=== PATIENT | male | born 1940 | race Caucasian/White ===

== ENCOUNTER 2017-12-23 12:44 | Inpatient (IN) | payer MEDICARE ==
--- NOTE | 2017-12-23 13:17 | ED Physician Chart ---
ED Chief Complaint/HPI - Patient Information Date Seen:: 12/23/17 Time Seen:: 12:50 Chief Complaint:: Agitation History of Present Illness:: onset x 3 days PHYSIATRIST of agitation, hallucinations, and striking out on other people; no report of trauma, LOC, ALOC, AMS, H/As, neck pain, C/P, SOB, Abd. Pain, A/N/V/D/C, fever, chills, SIs, or urinary s/s Allergies:: Allergies Allergy/AdvReac Type Severity Reaction Status Date / Time No Known Allergies Allergy Verified 12/23/17 12:56 Vitals:: Vital Signs - 8 hr 12/23/17 12:56 Temp 98.4 F HR 87 RR 21 BP 131/77 O2 Sat % 92 Historian:: Patient, EMS Review:: Nurse's Note Reviewed, Old Chart Reviewed, EMS run form Reviewed ED Review of Systems - Review of Systems General/Constitutional: No fever, No chills, No weight loss, No weakness, No diaphoresis, No edema, No loss of appetite Skin: No skin lesions, No rash, No bruising Head: No headache, No light-headedness Eyes: No loss of vision, No pain, No diplopia ENT: No earache, No nasal drainage, No sore throat, No tinnitus Neck: No neck pain, No swelling, No thyromegaly, No stiffness, No mass noted Cardio Vascular: No chest pain, No palpitations, No PND, No orthopnea, No edema Pulmonary: No SOB, No cough, No sputum, No wheezing GI: No nausea, No vomiting, No diarrhea, No pain, No melena, No hematochezia, No constipation, No hematemesis G/U: No dysuria, No frequency, No hematuria, No nacturia Musculoskeletal: No bone or joint pain, No back pain, No muscle pain Endocrine: No polyuria, No polydipsia Psychiatric: Prior psych history, No depression, No anxiety, No suicidal ideation, No homicidal ideation, Auditory hallucination, No visual hallucination Hematopoietic: No bruising, No lymphadenopathy Allergic/Immuno: No urticaria, No angioedema Neurological: No syncope, No focal symptoms, No weakness, No paresthesia, No headache, No seizure, No dizziness, Confusion, No confusion, No vertigo ED Past Medical History - Past Medical History Obtainable: Yes Past Medical History: HTN, CAD, CHF, Asthma/COPD, CVA/TIA, Thyroid disorder, Dementia, Other (Pneumonia) Family History: HTN Social History: Non Smoker, No Alcohol, No Drug Use, Single, Care Facility Surgical History: None Psychiatricy History: Schizophrenia, Bipolar, Dementia Medication: Reviewed Family Medical History - Family Member Mother History Unknown: Yes ED Physical Exam - Physical Examination General/Constitutional: Awake, Well-developed, well-nourished, Alert, No distress, GCS 15, Non-toxic appearing, Ambulatory Head: Atraumatic Eyes: Lids, conjuctiva normal, PERRL, EOMI Skin: Nl inspection, No rash, No skin lesions, No ecchymosis, Well hydrated, No lymphadenopathy ENMT: External ears, nose nl, TM canals nl, Nasal exam nl, Lips, teeth, gums nl , Oropharynx nl, Tonsils nl Neck: Nontender, Full ROM w/o pain, No JVD, No nuchal rigidity, No bruit, No mass, No stridor Respiratory: Nl effort/Exclusion, Clear to Auscultation, No Wheeze/Rhonchi/Rales Cardio Vascular: No murmur, gallop, rubs, NL S1 S2, Carotid/Femoral/Distal pulses equal bilaterally Other Cardio Vascular comments:: Irregular Irregular Rhythm GI: No tenderness/rebounding/guarding, No organomegaly, No hernia, Normal BS's, Nondistended, No mass/bruits, No McBurney tenderness : No CVA tenderness Extremities: No tenderness or effusion, Full ROM, normal strength in all extremities, No edema, Normal digits & nails Neuro/Psych: Alert/oriented, DTR's symmetric, Normal sensory exam, Normal motor strength, Judgement/insight normal, Mood normal, Normal gait, No focal deficits Other Neuro/Psych comments:: + Psychomotor Agitation; Mood/Affect: Labile; + Hallucinations; no SIs; Disoriented and Confused Misc: Normal back, No paraspinal tenderness ED Labs/Radiology/EKG Results - Lab Results Comments:: Na+: 130; WBC: 16.9 - EKG Interpretations EKG Time:: 13:28 Rate & Rhythm: 95; Atrial Fibrillation Comments:: non-specific st-t changes ED Septic Shock - . Is Septic Shock (SBP<90, OR Lactate>4 mmol\L) present?: No - <6hrs of presentation: Vital Signs: Vital Signs - 8 hr 12/23/17 12:56 Temp 98.4 F HR 87 RR 21 BP 131/77 O2 Sat % 92 ED Reassessment (Disposition) - Reassessment Reassessment Condition:: Improved - Diagnosis Diagnosis:: Agitation; Bipolar Disorder; Atrial Fibrillation; Leukocytosis; Hyponatremia; PNA; Sepsis; Medical Clearance; Psychosis - Aftercare/Follow up Instructions Aftercare/Follow-Up Instructions:: Counseled pt regarding lab results/diagnosis & need follow up, Counseled pt & family regarding lab results/diagnosis & need follow up - Patient Disposition Discharge/Transfer:: Acute Care w/in this hosp Accepting Physician:: Dr. Cedeno Time Called:: 1400 Time Responded:: 14:00 Admitted to:: [facility] Spoke to:: Dr. Cedeno Admitting Medical Physician:: Dr. Cedeno Admitting Psych Physician:: Dr. Bean Condition at Disposition:: Stable, Improved ED Discharge Plan - Patient Disposition Instructions: Psychosis
[2017-12-23 13:26] LABS: % BASOPHILS 0.2 % (0.0-2.0); % EOSINOPHILS 1.5 % (0.0-5.0); % LYMPHOCYTES 7.6 % (20.0-50.0); % MONOCYTES 6.9 % (2.0-10.0); % NEUTROPHILS 83.8 % (40.0-80.0); EOSINOPHILE ABSOLUTE 0.3 Th/cmm (0.1-0.4); HEMATOCRIT 47.9 % (41.0-60); HEMOGLOBIN 15.8 gm/dL (12-16); LYMPHOCYTE ABSOLUTE 1.3 Th/cmm (1.5-3.0); MEAN CELL VOLUME 88.3 fl (80-99); MEAN CORPUSCULAR HEMOGLOBIN 29.1 pg (27.0-31.0); MEAN CORPUSCULAR HGB CONC 32.9 pg (28.0-36.0); MEAN PLATELET VOLUME 9.9 fl; MONOCYTE ABSOLUTE 1.2 Th/cmm (0.3-1.0); NEUTROPHILE ABSOLUTE 14.1 Th/cmm (1.8-8.0); PLATELET COUNT 334 Th/cmm (150-400); RED BLOOD COUNT 5.42 Mil/cmm (3.80-5.80); RED CELL DISTRIBUTION WIDTH 12.6 % (11.5-20.0)
[2017-12-23 13:28] LABS: WHITE BLOOD COUNT 16.9 Th/cmm (4.8-10.8)
[2017-12-23 13:39] LABS: ACETAMINOPHEN < 10.0 ug/mL (10.0-30.0); ALBUMIN 3.6 gm/dL (4.2-5.5); ALKALINE PHOSPHATASE 100 U/L (34-104); ANION GAP 9.9 (7.0-16.0); BILIRUBIN,TOTAL 1.4 mg/dL (0.3-1.0); BUN - UREA NITROGEN 34 mg/dL (7-25); CALCIUM SERUM 10.2 mg/dL (8.6-10.3); CARBON DIOXIDE 26.6 mEq/L (21.0-31.0); CHLORIDE 97 mEq/L (98-107); CHOLESTEROL 147 mg/dL (<200); GLUCOSE 126 mg/dL (70-105); HDL -HIGH DENSITY LIPOPROTEIN 40 mg/dL (23-92); POTASSIUM SERUM 3.5 mEq/L (3.5-5.1); SGOT 34 U/L (13-39); SGPT/ALT 55 U/L (7-52); SODIUM SERUM 130 mEq/L (136-145); TOTAL PROTEIN,SERUM 7.3 gm/dL (6.0-8.3); TRIGLYCERIDES 133 mg/dL (<150)
[2017-12-23 13:42] LABS: SALICYLATES (ASPIRIN) < 25.0 mg/L (30.0-100.0)
[2017-12-23 16:09] VITALS: BP 131/63
--- NOTE | 2017-12-23 16:23 | History and Physical ---
History of Present Illness - HPI Chief Complaint: agitation HPI: This is a 77 year old male who is a snf resident admitted to [facility] due to agitation towards nursing staff. Vital Signs: Last Vital Signs Temp 98.4 F 12/23/17 12:56 Pulse 89 12/23/17 15:22 Resp 18 12/23/17 15:22 BP 131/63 12/23/17 16:09 Pulse Ox 94 12/23/17 15:22 Past Medical History Other History: HTN, CAD, CHF, Asthma/COPD, CVA/TIA, Thyroid disorder, Dementia, Pneumonia) Family Medical History - Family Member Mother History Unknown: Yes Social History Smoke: No Alcohol: None Drugs: None Lives: Custodial - Medications Home Medications: Home Medication Medication Instructions Recorded Type Albuterol/Ipratropium Neb [Duoneb 3 ml HHN Q4HR 12/23/17 History Neb] Bisacodyl [Dulcolax 10 Mg Supp] 10 mg RC DAILY PRN 12/23/17 History Fleet Enema [Fleet Enema] 135 ml RC DAILY PRN 12/23/17 History Hydralazine HCl 50 mg GT Q8H 12/23/17 History Hydrochlorothiazide [Hctz*] 50 mg GT DAILY 12/23/17 History Levothyroxine Sodium 125 mcg GT DAILY 12/23/17 History Lisinopril 40 mg GT DAILY 12/23/17 History Magnesium Hydroxide [Milk of 30 ml GT DAILY PRN 12/23/17 History Magnesia] Fcxrgymjlgfz-Rvpc-Omyftbtt,Iso 3.375 gm IV Q6H 12/23/17 History [Zosyn 3.375 gm/50 ml Galaxy] QUEtiapine Fumarate [SEROquel] 25 mg GT Q8H PRN 12/23/17 History Sennosides A and B [Senna] 8.6 mg GT BID 12/23/17 History amLODIPine Besylate [Norvasc*] 10 mg GT DAILY 12/23/17 History - Allergies Allergies/Adverse Reactions: Allergies Allergy/AdvReac Type Severity Reaction Status Date / Time No Known Allergies Allergy Verified 12/23/17 12:56 Review of Systems - Review of Systems Constitutional: Report: No Significant Eyes: Report: No Significant Respiratory: Report: No Significant Cardiovascular: Report: No Significant Neurological: Report: No Significant Physical Exam - Physical Exam HEENT: Report: Ears Nose Throat within normal limits Neck: Report: Within normal limits Cardiovascular Systems: Report: +s1/s2 noted, Regular, Rate and Rhythm Respiratory: Report: Breath Sounds are within normal limits Abdomen: Report: Non-tender to palpation Back: Report: Inspection of back is within normal limits. Extremities: Report: Non-tender to palpation. Skin: Report: Color of skin is within normal limits - Assessment Assessment: Current Active Problems Problem Status Onset AGITATION WITH STRIKING OUT BEHAVIOR Acute HTN CAD CHF Asthma/COPD hypothyroid Dementia - Plan Plan: continue current orders
[2017-12-23] MEDS ORDERED: Magnesium Hydroxide (MOM) 30 mL UDC GT PRN (16:35)
[2017-12-23] MEDS ORDERED: Fleet Enema 135 mL RC PRN (16:35)
[2017-12-23] MEDS ORDERED: [UNRECOGNIZED DRUG - OTHER] IV SCH (16:45)
[2017-12-23] MEDS ORDERED: PIPERACILLIN TAZO DEXTROSE ISO IV SCH (16:45)
[2017-12-23 17:18] LABS: A1C % 5.9 % (4.0-6.0)
[2017-12-23] MEDS ORDERED: Maalox 30 mL Cup PO PRN (18:14)
[2017-12-23] MEDS ORDERED: Albuterol/Ipratropium Neb 3 ML AERS HHN SCH (19:00)
[2017-12-24] MEDS ORDERED: Levothyroxine 0.125 Mg Tab GT SCH (07:30)
--- NOTE | 2017-12-24 07:57 | Diagnostic Imaging Report ---
Exam: Chest portable HISTORY: Pneumonia. Findings: Portable examination of the chest at 1843 hours reviewed, no prior studies available comparison. Bony thorax intact. Mediastinal structures midline the heart is enlarged at is evidence of congestive heart failure. Left lobe infiltrate and effusion noted. The gastrostomy tube overlying mid abdomen. IMPRESSION: Left lower lobe pneumonia and effusion Cardiomegaly congestive heart failure. Follow-up examination recommended.
[2017-12-24] MEDS ORDERED: Multivitamin Tab PO SCH (09:00)
== END 2017-12-23 20:28 | DRG 885 ==
LOC: ER 12:44 → GERO 15:28
PROVIDERS: ADMIT Psychiatry & Neurology Psychiatry; ATTEND Psychiatry & Neurology Psychiatry
DX: F31.9 Bipolar disorder, unspecified (principal); A41.9 Sepsis, unspecified organism; J18.9 Pneumonia, unspecified organism; I11.0 Hypertensive heart disease with heart failure; I48.91 Unspecified atrial fibrillation; F03.91 Unspecified dementia, unspecified severity, with behavioral disturbance; I50.9 Heart failure, unspecified; E87.1 Hypo-osmolality and hyponatremia; J44.9 Chronic obstructive pulmonary disease, unspecified; I25.10 Atherosclerotic heart disease of native coronary artery without angina pectoris; F29 Unspecified psychosis not due to a substance or known physiological condition; Z79.51 Long term (current) use of inhaled steroids; Z86.73 Personal history of transient ischemic attack (TIA), and cerebral infarction without residual deficits; Z82.49 Family history of ischemic heart disease and other diseases of the circulatory system
CPT/HCPCS: 36415-UA; 71045-TC; 80053-TC; 80061-TC; 80320-TC; 80329-TC; 83036-90; 83605; 84443-TC; 85007-TC; 85025-TC; 85027-TC; 86592-TC; 93005; 94760; Z7610

== ENCOUNTER 2017-12-23 20:29 | Inpatient (IN) | payer MEDICARE ==
[2017-12-23 23:24] LABS: pH 7.57 (7.35-7.45)
[2017-12-23 23:25] LABS: ALLEN TEST Positive
[2017-12-23] MEDS ORDERED: Albuterol/Ipratropium Neb 3 ML AERS HHN PRN (23:40)
[2017-12-24] MEDS: Albuterol/Ipratropium Neb 3 ML AERS HHN SCH ×7 (00:39→22:45)
[2017-12-24] MEDS ORDERED: Piperacillin Sodium/Tazobact 3.375 gm Vial IV ONE (03:30)
[2017-12-24] MEDS ORDERED: Pneumococcal Vaccine 0.5 mL Vial IM ONE (04:23)
[2017-12-24 08:09] LABS: BASOPHILE ABSOLUTE 0.2 Th/cumm (0-0.2); HEMATOCRIT 44.7 % (41.0-60); HEMOGLOBIN 15.1 gm/dL (12-16); LYMPHOCYTE ABSOLUTE 1.4 Th/cmm (1.5-3.0); MANUAL DIFF REQUIRED? YES; MEAN CELL VOLUME 88.6 fl (80-99); MEAN CORPUSCULAR HEMOGLOBIN 29.9 pg (27.0-31.0); MEAN CORPUSCULAR HGB CONC 33.8 pg (28.0-36.0); MEAN PLATELET VOLUME 10.3 fl; MONOCYTE ABSOLUTE 1.3 Th/cmm (0.3-1.0); PLATELET COUNT 379 Th/cmm (150-400); RED BLOOD COUNT 5.04 Mil/cmm (3.80-5.80); RED CELL DISTRIBUTION WIDTH 12.9 % (11.5-20.0)
[2017-12-24 08:22] LABS: WHITE BLOOD COUNT 21.9 Th/cmm (4.8-10.8)
[2017-12-24 08:38] LABS: BAND NEUTROPHILE 5 % (0-10); EOSINOPHIL 1 % (0-5); LYMPHOCYTE 5 % (20-50); MONOCYTE 6 % (2-10); NEUTROPHILS 83 % (40-80); TOTAL CELLS COUNTED 100
--- NOTE | 2017-12-24 08:45 | Diagnostic Imaging Report ---
KUB single view HISTORY: Coffee ground residual COMPARISON: None FINDINGS: There appears to be a percutaneous feeding tube. Mild to moderate gas-filled loops of bowel are noted. Mild Distal fecal impaction is noted. The osseous structures are intact. IMPRESSION: Mild to moderate gas filled loops of bowel, nonspecific. There is mild distal fecal impaction. Percutaneous feeding tube noted.
--- NOTE | 2017-12-24 08:46 | Diagnostic Imaging Report ---
CHEST X-RAY: AP view INDICATION: pain COMPARISON: 12/23/2017 FINDINGS: Mild increased interstitial lung markings are noted. No focal consolidation or effusions. Cardiomegaly is noted atherosclerosis. Degenerative changes are noted. IMPRESSION: Mild increased interstitial lung markings nonspecific and probably chronic in etiology. No focal consolidation identified. Cardiomegaly and atherosclerotic vascular disease.
--- NOTE | 2017-12-24 12:01 | Diagnostic Imaging Report ---
CT abdomen and pelvis without intravenous contrast Indication: Coffee ground residual, pain. Vomiting and diarrhea Comparison: None, Technique: Axial images were obtained from the lung bases to the bilateral proximal femurs without IV contrast. Coronal reconstructions were made. total DLP: 582, CTDI11.2 FINDINGS: Hypoventilatory and atelectatic changes of the lung bases are noted. Assessment of solid organs is limited due to lack of IV contrast. Exam is also limited due to external material along the right flank region causing streak artifact. No evidence of focal hepatic lesions. No focal splenic lesions. Diffuse pancreatic gland atrophy is noted. No focal lesions. Nonspecific bilateral perinephric inflammatory changes are noted. 4 mm left renal stone versus vascular calcification is noted. A 6 mm stone is seen along the gallbladder neck with mild distention of the gallbladder. Borderline prominent prostate gland is seen. There is mild distal fecal impaction. Diverticulosis is noted without evidence of diverticulitis. No evidence of bowel obstruction. Fluid-filled appendix is noted without evidence of appendicitis. Percutaneous pigtail gastric feeding tube is noted. No evidence of free abdominal air or free abdominal fluid. Streak artifact possibly due to injury ingested material or postsurgical changes seen along the right mid abdomen Diffuse atherosclerotic vascular disease noted with areas of mild ectasia of the abdominal aorta. Degenerative changes of the spine and pelvis are noted. IMPRESSION: Pigtail percutaneous gastric feeding tube. No evidence of free fluid. No evidence of bowel obstruction. Diverticulosis without evidence of diverticulitis Mild to distal fecal impaction. 6 mm stone within the gallbladder neck with mild distention of the gallbladder. Recommend short-term follow-up ultrasound. Nonobstructive 4 mm left renal stone versus vascular calcification. Borderline prominent prostate gland. Streak artifact possibly ingested material postsurgical change seen along the right mid abdomen. Diffuse atherosclerosis.
--- NOTE | 2017-12-24 16:58 | Internal Medicine Prog Note ---
Internal Medicine Objective - Results Result Diagrams: 12/24/17 07:36 12/24/17 13:50 Recent Labs: Laboratory Last Values WBC 21.9 Th/cmm (4.8-10.8) H* 12/24/17 07:36 RBC 5.04 Mil/cmm (3.80-5.80) 12/24/17 07:36 Hgb 15.1 gm/dL (12-16) 12/24/17 07:36 Hct 44.7 % (41.0-60) 12/24/17 07:36 MCV 88.6 fl (80-99) 12/24/17 07:36 MCH 29.9 pg (27.0-31.0) 12/24/17 07:36 MCHC Differential 33.8 pg (28.0-36.0) 12/24/17 07:36 RDW 12.9 % (11.5-20.0) 12/24/17 07:36 Plt Count 379 Th/cmm (150-400) 12/24/17 07:36 MPV 10.3 fl 12/24/17 07:36 Band Neutrophils % 5 % (0-10) 12/24/17 07:36 Neutrophils (Manual) 83 % (40-80) H 12/24/17 07:36 Lymphocytes 5 % (20-50) L 12/24/17 07:36 Monocytes 6 % (2-10) 12/24/17 07:36 Eosinophils 1 % (0-5) 12/24/17 07:36 Specimen Source ARTERIAL 12/23/17 22:58 Sample Site Left Radial 12/23/17 22:58 pH 7.57 (7.35-7.45) H* 12/23/17 22:58 pCO2 35.0 mmHg (35.0-45.0) 12/23/17 22:58 pO2 47.0 mmHg (80.0-100.0) L* 12/23/17 22:58 HCO3 32.2 mEq/L (20.0-26.0) H 12/23/17 22:58 Base Excess 9.6 mEq/L (-3.0-3.0) H 12/23/17 22:58 O2 Saturation 89.0 % (92.0-100.0) L 12/23/17 22:58 Ciro Test Positive 12/23/17 22:58 Vent Rate N/A 12/23/17 22:58 Inspired O2 21 12/23/17 22:58 Tidal Volume N/A 12/23/17 22:58 PEEP N/A 12/23/17 22:58 Pressure (ins/psv/peep) N/A 12/23/17 22:58 Critical Value MMIRANDA,COMPUTER APPLICATIONS DEVELOPER 12/23/17 22:58 BUN 41 mg/dL (7-25) H 12/24/17 13:50 Creatinine 1.4 mg/dL (0.7-1.3) H 12/24/17 13:50 B-Natriuretic Peptide 146.0 pg/mL (5.0-100.0) H 12/24/17 07:36 - Physical Exam Vitals and I&O: Vital Signs Temp 99.2 F 12/24/17 13:41 Pulse 81 12/24/17 15:53 Resp 20 12/24/17 15:53 BP 120/63 12/24/17 13:41 Pulse Ox 96 12/24/17 15:53 Intake & Output 12/23/17 12/24/17 12/24/17 18:59 06:59 18:59 Intake Total 300 50 Output Total 1400 Balance -1100 50 Weight (lbs) 83.915 kg 83.915 kg Intake: Intake, IV Amount 300 50 Piperacillin Sodium/ 50 50 Tazobact 3.375 gm In Sodium Chloride 0.9% 50 ml @ 100 mls/hr IV Q8H [facility] Rx#:[id number] Vancomycin HCl 1 gm In 250 Sodium Chloride 0.9% 250 ml @ 165 mls/hr IV Q24H [facility] Rx#:[id number] Output: Gastric Drainage 1400 Other: # Voids 2 # Bowel Movements 0 Active Medications: Current Medications Albuterol/Ipratropium (Duoneb Neb) 3 ml HHN Q4HRT [facility] Stop: 02/21/18 23:44 Last Admin: 12/24/17 15:50 Dose: 3 ml Albuterol/Ipratropium (Duoneb Neb) 3 ml HHN Q2H PRN PRN Reason: Wheezing Stop: 02/21/18 23:39 Piperacillin Sod/Tazobactam (Sod 3.375 gm/ Sodium Chloride) 50 mls @ 100 mls/ hr IV Q8H [facility] Stop: 02/22/18 00:59 Last Infusion: 12/24/17 12:26 Dose: Infused Vancomycin HCl 1.5 gm/ Sodium (Chloride) 500 mls @ 250 mls/hr IV ONCE ONE Stop: 12/24/17 18:59 Vancomycin HCl 1.5 gm/ Sodium (Chloride) 500 mls @ 250 mls/hr IV Q24H [facility] Stop: 02/23/18 08:59 Miscellaneous (Vancomycin Iv Per Pharmacy) 1 ea [facility] DAILY [facility] Stop: 02/22/18 15:59 Pantoprazole Sodium (Protonix) 40 mg IVP DAILY [facility] Stop: 02/23/18 08:59
[2017-12-24] MEDS ORDERED: Vancomycin HCl 1.5 GM in Sodium Chloride 0.9% 500 ML IV ONE (17:00)
--- NOTE | 2017-12-24 17:38 | Consultation ---
DATE OF CONSULTATION: 12/24/2017 PATIENT OF: Dr. Cedeno. Thank you very much Dr. Cedeno for this consultation. HISTORY OF PRESENT ILLNESS: This is a 77-year-old male, who was in [facility]. Apparently has episodes of emesis, has shortness of breath, hypoxemia, transferred here for treatment and management. The patient has a G-tube, dysphagia, placed on oxygen, nebulizer treatment and the patient's G-tube was placed on low intermittent suction, appears to be doing better, still little bit congested. OTHER PAST MEDICAL HISTORY: History of COPD, CVA, dementia, hypertension, coronary artery disease. SOCIAL HISTORY: Smoking for 30 years. He said quit in 2011. PHYSICAL EXAMINATION: GENERAL: The patient is awake, some congestion, no acute distress. VITAL SIGNS: Temperature 97.9, pulse 90, respirations 20, blood pressure is 131/63, saturation 98. HEENT: Head atraumatic, normocephalic. Eyes: Pupils reactive to light and accommodation. Ears, nose and throat are normal. NECK: Supple. No JVD. CHEST: There is rhonchi bilaterally. HEART: Regular rate. ABDOMEN: Soft. EXTREMITIES: No edema. LABORATORY DATA: WBC 16.9, hemoglobin 15.8, hematocrit 29.1. Sodium 130, potassium 3.5, BUN 34, creatinine 1.0. Chest x-ray was clear. No acute congestion. The followup chest x-ray with suggestion of possible infiltrate in left lower lobe area. IMPRESSION: 1. This is a 77-year-old male with possible aspiration pneumonia. 2. Pneumonia. 3. Respiratory failure. 4. Weakness. 5. Dysphagia. 6. Emesis. 7. Chronic obstructive pulmonary disease with exacerbation. PLAN: 1. IV antibiotics. 2. Nebulizer treatment. 3. Add Solu-Medrol. 4. Follow up chest x-ray and labs. Continue supportive care. Thank you very much for this consultation. I will follow the patient with you. JOB# [id number] [email or web address]
[2017-12-24] MEDS ORDERED: Fleet Enema 135 mL RC PRN (19:49)
[2017-12-24] MEDS ORDERED: Magnesium Hydroxide (MOM) 30 mL UDC GT PRN (19:49)
[2017-12-24] MEDS ORDERED: [UNRECOGNIZED DRUG - OTHER] IV SCH (20:00)
[2017-12-24] MEDS ORDERED: PIPERACILLIN TAZO DEXTROSE ISO IV SCH (20:00)
[2017-12-24] MEDS: methylPREDNISolone SS 40 mg Vial IVP SCH (20:46)
--- NOTE | 2017-12-24 21:52 | Consultation ---
DATE OF CONSULTATION: 12/24/2017 INPATIENT GASTROINTESTINAL CONSULTATION REFERRING PHYSICIAN: Dr. Cedeno. REASON FOR CONSULTATION: Coffee-ground emesis seen in the G-tube. HISTORY OF PRESENT ILLNESS: A 77-year-old male from a skilled facility. The patient was admitted for agitation. The patient is otherwise a poor historian, unable to give any meaningful history. PAST MEDICAL HISTORY: Hypertension, coronary artery disease, CHF, asthma, COPD, stroke, TIA, thyroid disorder, dementia, and pneumonia. PAST SURGICAL HISTORY: PEG tube placement. FAMILY HISTORY: Noncontributory. SOCIAL HISTORY: Resident of skilled facility. ALLERGIES: None. CURRENT MEDICATIONS: Zosyn and vancomycin. REVIEW OF SYSTEMS: Ten-point review of systems was unobtainable. PHYSICAL EXAMINATION: VITAL SIGNS: Temperature 97.6, breathing 20, pulse of 85, blood pressure is 139/72, and satting 95%. GENERAL: In no apparent distress. EYES: Anicteric. Normal conjunctivae. HEENT: Normocephalic and atraumatic. Moist mucous membranes. NECK: Soft and supple. CHEST: Clear. Normal effort. CARDIOVASCULAR: Regular rate and rhythm. ABDOMEN: Soft, nontender, and nondistended. G-tube. SKIN: Warm and dry. EXTREMITIES: Revealed no cyanosis. LABORATORY DATA: Show white count 21.9, hemoglobin of 15.1, and platelets of 379. IMPRESSION: A 77-year-old male with coffee-ground emesis in the form of gastric residuals, that are dark according to the staff. Hemoglobin is normal at 15.1. No obvious nausea, vomiting. The patient also has no complaints of any abdominal pain. PLAN: 1. Follow H and H. 2. Provide the patient with Protonix. 3. Consider EGD. Thank you for allowing me to participate. Please call me if you have any questions. JOB# [id number]
[2017-12-25] MEDS: Albuterol/Ipratropium Neb 3 ML AERS HHN SCH ×6 (02:47→22:34)
[2017-12-25] MEDS: methylPREDNISolone SS 40 mg Vial IVP SCH ×3 (05:26→20:55)
[2017-12-25 06:42] VITALS: BP 145/76
--- NOTE | 2017-12-25 07:42 | Consultation ---
DATE OF CONSULTATION: 12/25/2017 PHYSICIAN: Dr. Cedeno. PLASTICS FABRICATOR AND ASSEMBLER: Dr. Bean. TYPE OF THE REPORT: Psychiatric consult. REASON FOR THE CONSULT: Agitation. HISTORY OF PRESENT ILLNESS: The patient is a 77-year-old male who was transferred from [facility] because of increased agitation and because of irritability. The patient has been agitated and has been aggressive. He also was not able to follow any of staff directions. The patient also has been having anxiety. Chart reviewed and the patient interviewed. The patient is a poor historian and he was not able to provide any information. He also seems to be restless at times. The patient also still has problem following directions and seems to be confused. PAST PSYCHIATRIC HISTORY: The patient has history of dementia. PAST MEDICAL HISTORY: The patient has chronic obstructive pulmonary disease, hypothyroidism, hypertension, and coronary artery disease. SOCIAL HISTORY: The patient lives in [facility]. No known alcohol or drug use. MENTAL STATUS EXAM: The patient appears his stated age. Confused, poor historian, and unable to answer any of my questions because of his hallucinations and his psychosis. Easily agitated. Confused and seems to be disoriented to time, place, person, and situation. ASSESSMENT: PRIMARY DIAGNOSIS: Unspecified psychosis. SECONDARY DIAGNOSIS: Alzheimer's dementia, moderate to severe, without psychotic features. TREATMENT PLAN: We will monitor the patient's behavior and condition closely. Also, we will give Seroquel in a dose of 12.5 mg twice a day. Also, continue to follow up closely with his behavior. If the patient continued to be agitated, the patient might be admitted to the Geropsych Unit. JOB# [id number]
[2017-12-25 08:51] LABS: ANION GAP 16.5 (7.0-16.0); BUN - UREA NITROGEN 59 mg/dL (7-25); CALCIUM SERUM 10.1 mg/dL (8.6-10.3); CHLORIDE 99 mEq/L (98-107); CREATININE - SERUM 1.7 mg/dL (0.7-1.3); GLUCOSE 174 mg/dL (70-105); POTASSIUM SERUM 3.5 mEq/L (3.5-5.1); SODIUM SERUM 139 mEq/L (136-145)
--- NOTE | 2017-12-25 08:56 | General Progress Note ---
Subjective - Review of Systems Events since last encounter: patient psychotic Objective - Results Result Diagrams: 12/24/17 07:36 12/25/17 07:02 Recent Labs: Laboratory Last Values WBC 21.9 Th/cmm (4.8-10.8) H* 12/24/17 07:36 RBC 5.04 Mil/cmm (3.80-5.80) 12/24/17 07:36 Hgb 15.1 gm/dL (12-16) 12/24/17 07:36 Hct 44.7 % (41.0-60) 12/24/17 07:36 MCV 88.6 fl (80-99) 12/24/17 07:36 MCH 29.9 pg (27.0-31.0) 12/24/17 07:36 MCHC Differential 33.8 pg (28.0-36.0) 12/24/17 07:36 RDW 12.9 % (11.5-20.0) 12/24/17 07:36 Plt Count 379 Th/cmm (150-400) 12/24/17 07:36 MPV 10.3 fl 12/24/17 07:36 Band Neutrophils % 5 % (0-10) 12/24/17 07:36 Neutrophils (Manual) 83 % (40-80) H 12/24/17 07:36 Lymphocytes 5 % (20-50) L 12/24/17 07:36 Monocytes 6 % (2-10) 12/24/17 07:36 Eosinophils 1 % (0-5) 12/24/17 07:36 Specimen Source ARTERIAL 12/23/17 22:58 Sample Site Left Radial 12/23/17 22:58 pH 7.57 (7.35-7.45) H* 12/23/17 22:58 pCO2 35.0 mmHg (35.0-45.0) 12/23/17 22:58 pO2 47.0 mmHg (80.0-100.0) L* 12/23/17 22:58 HCO3 32.2 mEq/L (20.0-26.0) H 12/23/17 22:58 Base Excess 9.6 mEq/L (-3.0-3.0) H 12/23/17 22:58 O2 Saturation 89.0 % (92.0-100.0) L 12/23/17 22:58 Ciro Test Positive 12/23/17 22:58 Vent Rate N/A 12/23/17 22:58 Inspired O2 21 12/23/17 22:58 Tidal Volume N/A 12/23/17 22:58 PEEP N/A 12/23/17 22:58 Pressure (ins/psv/peep) N/A 12/23/17 22:58 Critical Value MMIRANDA,W[employer] MATE 12/23/17 22:58 Sodium 139 mEq/L (136-145) 12/25/17 07:02 Potassium 3.5 mEq/L (3.5-5.1) 12/25/17 07:02 Chloride 99 mEq/L (98-107) 12/25/17 07:02 Carbon Dioxide 27.0 mEq/L (21.0-31.0) 12/25/17 07:02 Anion Gap 16.5 (7.0-16.0) H 12/25/17 07:02 BUN 59 mg/dL (7-25) H 12/25/17 07:02 Creatinine 1.7 mg/dL (0.7-1.3) H 12/25/17 07:02 Est GFR ( Amer) TNP 12/25/17 07:02 Est GFR (Non-Af Amer) TNP 12/25/17 07:02 BUN/Creatinine Ratio 34.7 12/25/17 07:02 Glucose 174 mg/dL (70-105) H 12/25/17 07:02 Calcium 10.1 mg/dL (8.6-10.3) 12/25/17 07:02 B-Natriuretic Peptide 146.0 pg/mL (5.0-100.0) H 12/24/17 07:36 - Physical Exam Vitals and I&O: Vital Signs Temp 97.1 F 12/25/17 06:00 Pulse 89 12/25/17 07:59 Resp 20 12/25/17 07:59 BP 145/76 12/25/17 06:42 Pulse Ox 97 12/25/17 07:59 Intake & Output 12/24/17 12/25/17 12/25/17 18:59 06:59 18:59 Intake Total 50 100 Output Total 500 Balance 50 -400 Weight (lbs) 80.649 kg Intake: Intake, IV Amount 50 100 Piperacillin Sodium/ 50 100 Tazobact 3.375 gm In Sodium Chloride 0.9% 50 ml @ 100 mls/hr IV Q8H [facility] Rx#:[id number] Output: Gastric Drainage 500 Other: # Voids 2 Active Medications: Current Medications Albuterol/Ipratropium (Duoneb Neb) 3 ml HHN Q2H PRN PRN Reason: Wheezing Stop: 02/21/18 23:39 Albuterol/Ipratropium (Duoneb Neb) 3 ml HHN Q4HRT [facility] Stop: 02/22/18 22:59 Last Admin: 12/25/17 07:58 Dose: 3 ml Amlodipine Besylate (Norvasc) 10 mg GT DAILY [facility] Stop: 02/23/18 08:59 Bisacodyl (Dulcolax 10 Mg Supp) 10 mg RC DAILY PRN PRN Reason: IF MOM INEFFECTIVE Stop: 02/22/18 19:48 Hydralazine HCl (Apresoline) 50 mg GT Q8HR [facility] Stop: 02/22/18 20:59 Last Admin: 12/25/17 05:22 Dose: Not Given Hydrochlorothiazide (Hctz) 50 mg GT DAILY [facility] Stop: 02/23/18 08:59 Piperacillin Sod/Tazobactam (Sod 3.375 gm/ Sodium Chloride) 50 mls @ 100 mls/ hr IV Q8H [facility] Stop: 02/22/18 00:59 Last Admin: 12/25/17 08:49 Dose: 100 mls/hr Vancomycin HCl 1.5 gm/ Sodium (Chloride) 500 mls @ 250 mls/hr IV Q24H [facility] Stop: 02/23/18 08:59 Levothyroxine Sodium (Synthroid) 0.125 mg GT DAILY [facility] Stop: 02/23/18 08:59 Lisinopril (Zestril) 40 mg GT DAILY [facility] Stop: 02/23/18 08:59 Lorazepam (Ativan) 1 mg IVP Q4HR PRN; Protocol PRN Reason: for restlessnessand agitation Stop: 02/22/18 20:03 Magnesium Hydroxide (Milk Of Magnesia) 30 ml GT DAILY PRN PRN Reason: IF NO BM IN TWO DAYS Stop: 02/22/18 19:48 Methylprednisolone Sodium Succinate (Solu-Medrol) 40 mg IVP Q8HR [facility] Stop: 02/22/18 20:59 Last Admin: 12/25/17 05:26 Dose: 40 mg Miscellaneous (Vancomycin Iv Per Pharmacy) 1 ea MC DAILY [facility] Stop: 02/22/18 15:59 Pantoprazole Sodium (Protonix) 40 mg IVP DAILY [facility] Stop: 02/23/18 08:59 Quetiapine Fumarate (Seroquel) 25 mg GT Q8H PRN; Protocol PRN Reason: Psychosis Stop: 02/22/18 19:48 Quetiapine Fumarate (Seroquel) 12.5 mg GT BID [facility] PRN Reason: Protocol Stop: 02/23/18 08:59 Senna (Senna) 8.6 mg GT BID [facility] Stop: 02/23/18 08:59 Sodium Phosphate (Fleet Enema) 135 ml RC DAILY PRN PRN Reason: IF MOM OR DULCOLAX INEFFECTIVE Stop: 02/22/18 19:48
[2017-12-25] MEDS ORDERED: Vancomycin HCl 1.5 GM in Sodium Chloride 0.9% 500 ML IV SCH (09:00)
[2017-12-25] MEDS ORDERED: Levothyroxine 0.125 Mg Tab GT SCH (09:00)
--- NOTE | 2017-12-25 13:56 | Internal Medicine Prog Note ---
Internal Medicine Subjective - Subjective Service Date: 12/25/17 (hnp dictated) Internal Medicine Objective - Results Result Diagrams: 12/24/17 07:36 12/25/17 07:02 Recent Labs: Laboratory Last Values WBC 21.9 Th/cmm (4.8-10.8) H* 12/24/17 07:36 RBC 5.04 Mil/cmm (3.80-5.80) 12/24/17 07:36 Hgb 15.1 gm/dL (12-16) 12/24/17 07:36 Hct 44.7 % (41.0-60) 12/24/17 07:36 MCV 88.6 fl (80-99) 12/24/17 07:36 MCH 29.9 pg (27.0-31.0) 12/24/17 07:36 MCHC Differential 33.8 pg (28.0-36.0) 12/24/17 07:36 RDW 12.9 % (11.5-20.0) 12/24/17 07:36 Plt Count 379 Th/cmm (150-400) 12/24/17 07:36 MPV 10.3 fl 12/24/17 07:36 Band Neutrophils % 5 % (0-10) 12/24/17 07:36 Neutrophils (Manual) 83 % (40-80) H 12/24/17 07:36 Lymphocytes 5 % (20-50) L 12/24/17 07:36 Monocytes 6 % (2-10) 12/24/17 07:36 Eosinophils 1 % (0-5) 12/24/17 07:36 Specimen Source ARTERIAL 12/23/17 22:58 Sample Site Left Radial 12/23/17 22:58 pH 7.57 (7.35-7.45) H* 12/23/17 22:58 pCO2 35.0 mmHg (35.0-45.0) 12/23/17 22:58 pO2 47.0 mmHg (80.0-100.0) L* 12/23/17 22:58 HCO3 32.2 mEq/L (20.0-26.0) H 12/23/17 22:58 Base Excess 9.6 mEq/L (-3.0-3.0) H 12/23/17 22:58 O2 Saturation 89.0 % (92.0-100.0) L 12/23/17 22:58 Ciro Test Positive 12/23/17 22:58 Vent Rate N/A 12/23/17 22:58 Inspired O2 21 12/23/17 22:58 Tidal Volume N/A 12/23/17 22:58 PEEP N/A 12/23/17 22:58 Pressure (ins/psv/peep) N/A 12/23/17 22:58 Critical Value MMIRANDA,GLASS CHECKER 12/23/17 22:58 Sodium 139 mEq/L (136-145) 12/25/17 07:02 Potassium 3.5 mEq/L (3.5-5.1) 12/25/17 07:02 Chloride 99 mEq/L (98-107) 12/25/17 07:02 Carbon Dioxide 27.0 mEq/L (21.0-31.0) 12/25/17 07:02 Anion Gap 16.5 (7.0-16.0) H 12/25/17 07:02 BUN 59 mg/dL (7-25) H 12/25/17 07:02 Creatinine 1.7 mg/dL (0.7-1.3) H 12/25/17 07:02 Est GFR ( Amer) TNP 12/25/17 07:02 Est GFR (Non-Af Amer) TNP 12/25/17 07:02 BUN/Creatinine Ratio 34.7 12/25/17 07:02 Glucose 174 mg/dL (70-105) H 12/25/17 07:02 Calcium 10.1 mg/dL (8.6-10.3) 12/25/17 07:02 B-Natriuretic Peptide 146.0 pg/mL (5.0-100.0) H 12/24/17 07:36 - Physical Exam Vitals and I&O: Vital Signs Temp 97.3 F 12/25/17 11:06 Pulse 87 12/25/17 13:07 Resp 20 12/25/17 11:21 BP 120/60 12/25/17 13:07 Pulse Ox 98 12/25/17 11:21 Intake & Output 12/24/17 12/25/17 12/25/17 18:59 06:59 18:59 Intake Total 50 100 0 Output Total 500 500 Balance 50 -400 -500 Weight (lbs) 177 lb 12.8 oz 176 lb 2 oz Intake: Intake, IV Amount 50 100 Piperacillin Sodium/ 50 100 Tazobact 3.375 gm In Sodium Chloride 0.9% 50 ml @ 100 mls/hr IV Q8H [facility] Rx#:[id number] Tube Feeding 0 Output: Gastric Drainage 500 500 Other: # Voids 2 Active Medications: Current Medications Albuterol/Ipratropium (Duoneb Neb) 3 ml HHN Q2H PRN PRN Reason: Wheezing Stop: 02/21/18 23:39 Albuterol/Ipratropium (Duoneb Neb) 3 ml HHN Q4HRT [facility] Stop: 02/22/18 22:59 Last Admin: 12/25/17 11:21 Dose: 3 ml Amlodipine Besylate (Norvasc) 10 mg GT DAILY [facility] Stop: 02/23/18 08:59 Last Admin: 12/25/17 09:42 Dose: 10 mg Bisacodyl (Dulcolax 10 Mg Supp) 10 mg RC DAILY PRN PRN Reason: IF MOM INEFFECTIVE Stop: 02/22/18 19:48 Hydralazine HCl (Apresoline) 50 mg GT Q8HR [facility] Stop: 02/22/18 20:59 Last Admin: 12/25/17 13:07 Dose: 50 mg Hydrochlorothiazide (Hctz) 50 mg GT DAILY [facility] Stop: 02/23/18 08:59 Last Admin: 12/25/17 09:44 Dose: 50 mg Piperacillin Sod/Tazobactam (Sod 3.375 gm/ Sodium Chloride) 50 mls @ 100 mls/ hr IV Q8H [facility] Stop: 02/22/18 00:59 Last Admin: 12/25/17 08:49 Dose: 100 mls/hr Vancomycin HCl 1.5 gm/ Sodium (Chloride) 500 mls @ 250 mls/hr IV Q24H [facility] Stop: 02/23/18 08:59 Last Admin: 12/25/17 09:59 Dose: 250 mls/hr Levothyroxine Sodium 0.025 mg/ (Levothyroxine Sodium 0.1 mg) 0.125 mg GT DAILY [facility] Stop: 02/23/18 10:44 Last Admin: 12/25/17 11:11 Dose: Not Given Lisinopril (Zestril) 40 mg GT DAILY [facility] Stop: 02/23/18 08:59 Last Admin: 12/25/17 09:44 Dose: 40 mg Lorazepam (Ativan) 1 mg IVP Q4HR PRN; Protocol PRN Reason: for restlessnessand agitation Stop: 02/22/18 20:03 Magnesium Hydroxide (Milk Of Magnesia) 30 ml GT DAILY PRN PRN Reason: IF NO BM IN TWO DAYS Stop: 02/22/18 19:48 Methylprednisolone Sodium Succinate (Solu-Medrol) 40 mg IVP Q8HR [facility] Stop: 02/22/18 20:59 Last Admin: 12/25/17 13:05 Dose: 40 mg Miscellaneous (Vancomycin Iv Per Pharmacy) 1 ea [facility] DAILY [facility] Stop: 02/22/18 15:59 Pantoprazole Sodium (Protonix) 40 mg IVP DAILY [facility] Stop: 02/23/18 08:59 Last Admin: 12/25/17 09:44 Dose: 40 mg Quetiapine Fumarate (Seroquel) 25 mg GT Q8H PRN; Protocol PRN Reason: Psychosis Stop: 02/22/18 19:48 Quetiapine Fumarate (Seroquel) 12.5 mg GT BID [facility] PRN Reason: Protocol Stop: 02/23/18 08:59 Last Admin: 12/25/17 09:43 Dose: 12.5 mg Senna (Senna) 8.6 mg GT BID [facility] Stop: 02/23/18 08:59 Last Admin: 12/25/17 09:43 Dose: 8.6 mg Sodium Phosphate (Fleet Enema) 135 ml RC DAILY PRN PRN Reason: IF MOM OR DULCOLAX INEFFECTIVE Stop: 02/22/18 19:48
[2017-12-25 16:00] LABS: BASOPHILE ABSOLUTE 0.2 Th/cumm (0-0.2); EOSINOPHILE ABSOLUTE 0.1 Th/cmm (0.1-0.4); HEMATOCRIT 42.2 % (41.0-60); LYMPHOCYTE ABSOLUTE 0.6 Th/cmm (1.5-3.0); MANUAL DIFF REQUIRED? YES; MEAN CELL VOLUME 88.3 fl (80-99); MEAN CORPUSCULAR HEMOGLOBIN 29.2 pg (27.0-31.0); MEAN CORPUSCULAR HGB CONC 33.1 pg (28.0-36.0); MEAN PLATELET VOLUME 9.8 fl; MONOCYTE ABSOLUTE 0.3 Th/cmm (0.3-1.0); NEUTROPHILE ABSOLUTE 17.4 Th/cmm (1.8-8.0); PLATELET COUNT 433 Th/cmm (150-400); RED BLOOD COUNT 4.78 Mil/cmm (3.80-5.80); RED CELL DISTRIBUTION WIDTH 13.1 % (11.5-20.0)
[2017-12-25 16:10] LABS: WHITE BLOOD COUNT 18.6 Th/cmm (4.8-10.8)
--- NOTE | 2017-12-25 16:12 | History & Physical ---
ADMIT DATE: 12/25/2017 CHIEF COMPLAINT: Transferred from [facility] due to hypoxemia. HISTORY OF PRESENT ILLNESS: This is a 77-year-old male who was transferred from the [facility] due to shortness of breath and the patient was noted with a low oxygen saturation. The patient's chest x-ray showed pneumonia. For this reason, the patient is now admitted to the telemetry unit. PAST MEDICAL HISTORY: COPD, CVA, dementia, hypertension and CAD. SOCIAL HISTORY: The patient is a former smoker. PAST SURGICAL HISTORY: None per patient. REVIEW OF SYSTEMS: Unable to obtain due to patient's mental status. The patient is confused. PHYSICAL EXAMINATION: GENERAL: This is an elderly male, awake, confused, in no apparent distress. VITAL SIGNS: Temperature 97.3, heart rate 95, blood pressure 127/64 and O2 100%. HEENT: Head; normocephalic, atraumatic. NECK: Supple. No mass. LUNGS: Rhonchi bilaterally. HEART: Regular rate and rhythm. ABDOMEN: Soft and nontender. LABORATORY DATA: WBC 21.9, H and H 15.1 and 44.7 and platelet of 379. Sodium 139, potassium 3.5, chloride 99, BUN 59 and creatinine 1.7. BNP of 146. DIAGNOSTIC DATA: The patient had a chest x-ray done and the impression is mild increased interstitial lung markings, nonspecific and probably chronic in etiology. ASSESSMENT: Acute chronic obstructive pulmonary disease exacerbation, pneumonia, generalized weakness, dysphagia, history of cerebrovascular disease, dementia, hypertension, coronary artery disease and leukocytosis. PLAN: The patient to be admitted to the telemetry unit. We will get a Pulmonology on the case. IV antibiotics, inhalation treatment and supplement oxygen. We will continue to monitor this patient. JOB# [id number]
[2017-12-25 16:15] LABS: ANION GAP 12.8 (7.0-16.0); BUN - UREA NITROGEN 68 mg/dL (7-25); CALCIUM SERUM 9.8 mg/dL (8.6-10.3); CARBON DIOXIDE 26.6 mEq/L (21.0-31.0); CHLORIDE 101 mEq/L (98-107); CREATININE - SERUM 1.7 mg/dL (0.7-1.3); GLUCOSE 154 mg/dL (70-105); POTASSIUM SERUM 3.4 mEq/L (3.5-5.1); SODIUM SERUM 137 mEq/L (136-145)
[2017-12-25 16:36] LABS: LYMPHOCYTE 4 % (20-50); MONOCYTE 1 % (2-10); NEUTROPHILS 95 % (40-80)
[2017-12-25 16:37] LABS: PLATELET ESTIMATE INCREASED PLATELETS (NORMAL); PLATELET MORPHOLOGY GIANT PLATELETS SEEN (NORMAL)
--- NOTE | 2017-12-25 16:38 | GI Progress Note ---
Subjective - Review of Systems Subjective: NO OVERT GI BLEEDING NGT IS DARK GREEN Objective - Results Result Diagrams: 12/25/17 15:48 12/25/17 15:48 Recent Labs: Laboratory Last Values WBC 18.6 Th/cmm (4.8-10.8) H 12/25/17 15:48 RBC 4.78 Mil/cmm (3.80-5.80) 12/25/17 15:48 Hgb 14.0 gm/dL (12-16) 12/25/17 15:48 Hct 42.2 % (41.0-60) 12/25/17 15:48 MCV 88.3 fl (80-99) 12/25/17 15:48 MCH 29.2 pg (27.0-31.0) 12/25/17 15:48 MCHC Differential 33.1 pg (28.0-36.0) 12/25/17 15:48 RDW 13.1 % (11.5-20.0) 12/25/17 15:48 Plt Count 433 Th/cmm (150-400) H 12/25/17 15:48 MPV 9.8 fl 12/25/17 15:48 Band Neutrophils % 5 % (0-10) 12/24/17 07:36 Neutrophils (Manual) 83 % (40-80) H 12/24/17 07:36 Lymphocytes 5 % (20-50) L 12/24/17 07:36 Monocytes 6 % (2-10) 12/24/17 07:36 Eosinophils 1 % (0-5) 12/24/17 07:36 Specimen Source ARTERIAL 12/23/17 22:58 Sample Site Left Radial 12/23/17 22:58 pH 7.57 (7.35-7.45) H* 12/23/17 22:58 pCO2 35.0 mmHg (35.0-45.0) 12/23/17 22:58 pO2 47.0 mmHg (80.0-100.0) L* 12/23/17 22:58 HCO3 32.2 mEq/L (20.0-26.0) H 12/23/17 22:58 Base Excess 9.6 mEq/L (-3.0-3.0) H 12/23/17 22:58 O2 Saturation 89.0 % (92.0-100.0) L 12/23/17 22:58 Ciro Test Positive 12/23/17 22:58 Vent Rate N/A 12/23/17 22:58 Inspired O2 21 12/23/17 22:58 Tidal Volume N/A 12/23/17 22:58 PEEP N/A 12/23/17 22:58 Pressure (ins/psv/peep) N/A 12/23/17 22:58 Critical Value MMIRANDA,OWNER 12/23/17 22:58 Sodium 137 mEq/L (136-145) 12/25/17 15:48 Potassium 3.4 mEq/L (3.5-5.1) L 12/25/17 15:48 Chloride 101 mEq/L (98-107) 12/25/17 15:48 Carbon Dioxide 26.6 mEq/L (21.0-31.0) 12/25/17 15:48 Anion Gap 12.8 (7.0-16.0) 12/25/17 15:48 BUN 68 mg/dL (7-25) H 12/25/17 15:48 Creatinine 1.7 mg/dL (0.7-1.3) H 12/25/17 15:48 Est GFR ( Amer) TNP 12/25/17 15:48 Est GFR (Non-Af Amer) TNP 12/25/17 15:48 BUN/Creatinine Ratio 40.0 12/25/17 15:48 Glucose 154 mg/dL (70-105) H 12/25/17 15:48 Calcium 9.8 mg/dL (8.6-10.3) 12/25/17 15:48 B-Natriuretic Peptide 146.0 pg/mL (5.0-100.0) H 12/24/17 07:36 - Physical Exam Vitals and I&O: Vital Signs Temp 97.3 F 12/25/17 11:06 Pulse 87 12/25/17 13:07 Resp 20 12/25/17 11:21 BP 120/60 12/25/17 13:07 Pulse Ox 98 12/25/17 11:21 Intake & Output 12/24/17 12/25/17 12/25/17 18:59 06:59 18:59 Intake Total 50 100 0 Output Total 500 500 Balance 50 -400 -500 Weight (lbs) 80.649 kg 79.889 kg Intake: Intake, IV Amount 50 100 Piperacillin Sodium/ 50 100 Tazobact 3.375 gm In Sodium Chloride 0.9% 50 ml @ 100 mls/hr IV Q8H [facility] Rx#:[id number] Tube Feeding 0 Output: Gastric Drainage 500 500 Other: # Voids 2 Active Medications: Current Medications Albuterol/Ipratropium (Duoneb Neb) 3 ml HHN Q2H PRN PRN Reason: Wheezing Stop: 02/21/18 23:39 Albuterol/Ipratropium (Duoneb Neb) 3 ml HHN Q4HRT [facility] Stop: 02/22/18 22:59 Last Admin: 12/25/17 11:21 Dose: 3 ml Amlodipine Besylate (Norvasc) 10 mg GT DAILY [facility] Stop: 02/23/18 08:59 Last Admin: 12/25/17 09:42 Dose: 10 mg Bisacodyl (Dulcolax 10 Mg Supp) 10 mg RC DAILY PRN PRN Reason: IF MOM INEFFECTIVE Stop: 02/22/18 19:48 Hydralazine HCl (Apresoline) 50 mg GT Q8HR [facility] Stop: 02/22/18 20:59 Last Admin: 12/25/17 13:07 Dose: 50 mg Hydrochlorothiazide (Hctz) 50 mg GT DAILY [facility] Stop: 02/23/18 08:59 Last Admin: 12/25/17 09:44 Dose: 50 mg Piperacillin Sod/Tazobactam (Sod 3.375 gm/ Sodium Chloride) 50 mls @ 100 mls/ hr IV Q8H [facility] Stop: 02/22/18 00:59 Last Admin: 12/25/17 08:49 Dose: 100 mls/hr Vancomycin HCl 1.5 gm/ Sodium (Chloride) 500 mls @ 250 mls/hr IV Q24H [facility] Stop: 02/23/18 08:59 Last Admin: 12/25/17 09:59 Dose: 250 mls/hr Levothyroxine Sodium 0.025 mg/ (Levothyroxine Sodium 0.1 mg) 0.125 mg GT DAILY [facility] Stop: 02/23/18 10:44 Last Admin: 12/25/17 11:11 Dose: Not Given Lisinopril (Zestril) 40 mg GT DAILY [facility] Stop: 02/23/18 08:59 Last Admin: 12/25/17 09:44 Dose: 40 mg Lorazepam (Ativan) 1 mg IVP Q4HR PRN; Protocol PRN Reason: for restlessnessand agitation Stop: 02/22/18 20:03 Magnesium Hydroxide (Milk Of Magnesia) 30 ml GT DAILY PRN PRN Reason: IF NO BM IN TWO DAYS Stop: 02/22/18 19:48 Methylprednisolone Sodium Succinate (Solu-Medrol) 40 mg IVP Q8HR [facility] Stop: 02/22/18 20:59 Last Admin: 12/25/17 13:05 Dose: 40 mg Miscellaneous (Vancomycin Iv Per Pharmacy) 1 ea MC DAILY [facility] Stop: 02/22/18 15:59 Pantoprazole Sodium (Protonix) 40 mg IVP DAILY [facility] Stop: 02/23/18 08:59 Last Admin: 12/25/17 09:44 Dose: 40 mg Quetiapine Fumarate (Seroquel) 25 mg GT Q8H PRN; Protocol PRN Reason: Psychosis Stop: 02/22/18 19:48 Quetiapine Fumarate (Seroquel) 12.5 mg GT BID [facility] PRN Reason: Protocol Stop: 02/23/18 08:59 Last Admin: 12/25/17 09:43 Dose: 12.5 mg Senna (Senna) 8.6 mg GT BID [facility] Stop: 02/23/18 08:59 Last Admin: 12/25/17 09:43 Dose: 8.6 mg Sodium Phosphate (Fleet Enema) 135 ml RC DAILY PRN PRN Reason: IF MOM OR DULCOLAX INEFFECTIVE Stop: 02/22/18 19:48 Assessment/Plan - Assessment Assessment: 77 YO MALE WITH POSSIBLE UGI BLEED HGB IS NORMAL X 2 NO OVERT GI BLEED 1.CHECK GASTRIC CONTENT OCCULT TESTING 2.MAY NEED EGD IF OCCULT TESTING IS POSITIVE OR GI BLEEDING DEVELOPS 3.PROTONIX 4.FOLLOW H/H
--- NOTE | 2017-12-25 17:24 | Consultation ---
Consult Note - Consult Note Service Date: 12/25/17 Referring Physician: Bertha Cedeno Consult Note: PHYSICIAN Consultation Note: Date of Admission: 12/23/17 Purpose of Consultation: Chief Complaint: Patient SAÚL SOTELO was admitted to [facility] Telemetry with PNA. History of Present Illness: The patient is a 77-year-old male with past medical history of hypertension, coronary artery disease, CHF, asthma, COPD, CVA, TIA, thyroid disorder, dementia and pneumonia, admitted to [facility] at [facility] for agitation towards nursing staff at the nursing facility on 12/23/2017. He was found to have hypoxia on pulse ox. Chest x-ray revealed pneumonia. His WBC count was 16,900, it went up to 21,900. Meanwhile, he was transferred to acute care unit for further care. Antibiotic milian, the patient was started on vancomycin and Zosyn. ID consult was called for further antibiotic management. Past Medical History: COPD, CVA, dementia, hypertension, coronary artery disease, asthma, hypothyroidism and CHF. Diagnoses UNSPECIFIED DEMENTIA WITHOUT BEHAVIORAL DISTURBANCE (12/23/17) ESSENTIAL (PRIMARY) HYPERTENSION (12/23/17) ATHSCL HEART DISEASE OF [place] CORONARY ARTERY W/O ANG PCTRS (12/23/17) CHRONIC OBSTRUCTIVE PULMONARY DISEASE, UNSPECIFIED (12/23/17) PNEUMONITIS DUE TO INHALATION OF FOOD AND VOMIT (12/23/17) RESPIRATORY FAILURE, UNSP, UNSP W HYPOXIA OR HYPERCAPNIA (12/23/17) DYSPHAGIA, UNSPECIFIED (12/23/17) Allergies Allergy/AdvReac Type Severity Reaction Status Date / Time No Known Allergies Allergy Verified 12/23/17 12:56 Vital Signs Temp 97.3 F 12/25/17 11:06 Pulse 90 12/25/17 17:12 Resp 20 12/25/17 17:12 BP 120/60 12/25/17 13:07 Pulse Ox 98 12/25/17 17:12 Intake & Output 12/24/17 12/25/17 12/25/17 18:59 06:59 18:59 Intake Total 50 100 50 Output Total 500 500 Balance 50 -400 -450 Weight (lbs) 80.649 kg 79.889 kg Intake: Intake, IV Amount 50 100 50 Piperacillin Sodium/ 50 100 50 Tazobact 3.375 gm In Sodium Chloride 0.9% 50 ml @ 100 mls/hr IV Q8H [facility] Rx#:[id number] Tube Feeding 0 Output: Gastric Drainage 500 500 Other: # Voids 2 Laboratory Results - last 24 hr 12/25/17 12/25/17 12/25/17 07:02 15:48 15:48 WBC 18.6 H RBC 4.78 Hgb 14.0 Hct 42.2 MCV 88.3 MCH 29.2 MCHC Differential 33.1 RDW 13.1 Plt Count 433 H MPV 9.8 Neutrophils (Manual) 95 H Lymphocytes 4 L Monocytes 1 L Platelet Estimate INCREASED PLATELETS Platelet Morphology GIANT PLATELETS SEEN Sodium 139 137 Potassium 3.5 3.4 L Chloride 99 101 Carbon Dioxide 27.0 26.6 Anion Gap 16.5 H 12.8 BUN 59 H 68 H Creatinine 1.7 H 1.7 H Est GFR ( Amer) TNP TNP Est GFR (Non-Af Amer) TNP TNP BUN/Creatinine Ratio 34.7 40.0 Glucose 174 H 154 H Calcium 10.1 9.8 Home Medication Medication Instructions Recorded Type Albuterol/Ipratropium Neb [Duoneb 3 ml HHN Q4HR 12/23/17 History Neb] Bisacodyl [Dulcolax 10 Mg Supp] 10 mg RC DAILY PRN 12/23/17 History Fleet Enema [Fleet Enema] 135 ml RC DAILY PRN 12/23/17 History Hydralazine HCl 50 mg GT Q8H 12/23/17 History Hydrochlorothiazide [Hctz*] 50 mg GT DAILY 12/23/17 History Levothyroxine Sodium 125 mcg GT DAILY 12/23/17 History Lisinopril 40 mg GT DAILY 12/23/17 History Magnesium Hydroxide [Milk of 30 ml GT DAILY PRN 12/23/17 History Magnesia] Djbunvrnxkgp-Nnnj-Yesjvmpb,Iso 3.375 gm IV Q6H 12/23/17 History [Zosyn 3.375 gm/50 ml Galaxy] QUEtiapine Fumarate [SEROquel] 25 mg GT Q8H PRN 12/23/17 History Sennosides A and B [Senna] 8.6 mg GT BID 12/23/17 History amLODIPine Besylate [Norvasc*] 10 mg GT DAILY 12/23/17 History Current Medications Generic Name Dose Route Start Last Admin Trade Name Freq PRN Reason Stop Dose Admin Albuterol/Ipratropium 3 ml 12/23/17 23:40 Duoneb Neb N 02/21/18 23:39 Q2H PRN Wheezing Albuterol/Ipratropium 3 ml 12/24/17 23:00 12/25/17 17:11 Duoneb Neb N 02/22/18 22:59 3 ml Q4HRT LIZET Administration Amlodipine Besylate 10 mg 12/25/17 09:00 12/25/17 09:42 Norvasc GT 02/23/18 08:59 10 mg DAILY LIZET Administration Bisacodyl 10 mg 12/24/17 19:49 Dulcolax 10 Mg Supp RC 02/22/18 19:48 DAILY PRN IF MOM INEFFECTIVE Hydralazine HCl 50 mg 12/24/17 21:00 12/25/17 13:07 Apresoline GT 02/22/18 20:59 50 mg Q8HR LIZET Administration Hydrochlorothiazide 50 mg 12/25/17 09:00 12/25/17 09:44 Hctz GT 02/23/18 08:59 50 mg DAILY LIZET Administration Piperacillin Sod/Tazobactam 50 mls @ 100 mls/hr 12/24/17 01:00 12/25/17 16:34 Sod 3.375 gm/ Sodium Chloride IV 02/22/18 00:59 100 mls/hr Q8H LIZET Administration Vancomycin HCl 1.5 gm/ Sodium 500 mls @ 250 mls/hr 12/25/17 09:00 12/25/17 09 :59 Chloride IV 02/23/18 08:59 250 mls/hr Q24H LIZET Administration Levothyroxine Sodium 0.025 mg/ 0.125 mg 12/25/17 10:45 12/25/17 11:11 Levothyroxine Sodium 0.1 mg GT 02/23/18 10:44 Not Given DAILY LIZET Lisinopril 40 mg 12/25/17 09:00 12/25/17 09:44 Zestril GT 02/23/18 08:59 40 mg DAILY LIZET Administration Lorazepam 1 mg 12/24/17 20:04 Ativan IVP 02/22/18 20:03 Q4HR PRN for restlessnessand agitation Protocol Magnesium Hydroxide 30 ml 12/24/17 19:49 Milk Of Magnesia GT 02/22/18 19:48 DAILY PRN IF NO BM IN TWO DAYS Methylprednisolone Sodium Succinate 40 mg 12/24/17 21:00 12/25/17 13:05 Solu-Medrol IVP 02/22/18 20:59 40 mg Q8HR LIZET Administration Miscellaneous 1 ea 12/24/17 16:00 Vancomycin Iv Per Pharmacy 02/22/18 15:59 DAILY LIZET Pantoprazole Sodium 40 mg 12/25/17 09:00 12/25/17 09:44 Protonix IVP 02/23/18 08:59 40 mg DAILY LIZET Administration Quetiapine Fumarate 25 mg 12/24/17 19:49 Seroquel GT 02/22/18 19:48 Q8H PRN Psychosis Protocol Quetiapine Fumarate 12.5 mg 12/25/17 09:00 12/25/17 16:32 Seroquel GT 02/23/18 08:59 12.5 mg BID LIZET Administration Protocol Senna 8.6 mg 12/25/17 09:00 12/25/17 16:33 Senna GT 02/23/18 08:59 8.6 mg BID LIZET Administration Sodium Phosphate 135 ml 12/24/17 19:49 Fleet Enema RC 02/22/18 19:48 DAILY PRN IF MOM OR DULCOLAX INEFFECTIVE Review of Systems: A 12 point ROS was reviewed with the pertinent positive and negatives noted in the HPI. GENERAL: The patient has no fever, no chills. HEENT: No diplopia, no photophobia, no sore throat. RESPIRATORY: The patient has cough and shortness of breath. CARDIOVASCULAR: No chest pain, no palpitation. GASTROINTESTINAL: No nausea, no vomiting, no diarrhea or constipation. GENITOURINARY: No dysuria, no hematuria. NEUROLOGIC: No headache, no dizziness, no focal weakness. Social History The patient lives at a nursing facility. No history of alcohol or drug use. The patient has history of smoking in the past. Family Medical History Not available. Physical Exam: VITAL SIGNS: Current vital signs show temperature is 97.3 degrees Fahrenheit, pulse 90, respirations 20, blood pressure 120/60. GENERAL: The patient is comfortable. lying in the bed, not in acute distress. HEENT: Head is normocephalic, atraumatic. Oral cavity moist. [place] tongue. Eyes: Pallor is present. No icterus. PERRLA, EOMI. NECK: Supple. No JVD. Trachea in the midline. No use of accessory muscles. CHEST: Bibasilar crackles present bilaterally. HEART: S1, S2 within normal limits. Regular rhythm. No murmur. No gallop. ABDOMEN: Soft, nontender, nondistended. Bowel sounds are present. EXTREMITIES: No cyanosis, no clubbing, no edema. NEUROLOGIC: Awake, confused. LABORATORY DATA: Current lab shows WBC count 18,600, hemoglobin 14, hematocrit 42.2, platelets are 433,000, neutrophils 95%. Sodium is 137, potassium 3.4, chloride 101, bicarb is 26.6, BUN is 68, creatinine 1.7, glucose is 154. MRSA screen is negative. Blood culture is so far negative. Chest x-ray shows mild increased in interstitial marking, nonspecific, chronic versus nonfocal consolidation. CT scan of abdomen and pelvis due to bleeding without diverticulitis, mild fecal impaction distally, mild distention of gallbladder with a 6 mm stone within the gallbladder neck, diffuse atherosclerosis. Assessment: 1. Leukocytosis, suspect aspiration pneumonia. 2. Suspect cholecystitis. 3. Chronic obstructive pulmonary disease exacerbation. 4. Respiratory insufficiency with hypoxia. 5. History of cerebrovascular accident. 6. Dementia. 7. Hypertension. 8. Coronary artery disease. Plan: Continue Zosyn, discontinue vancomycin. Check HIDA scan. Thank you Dr. Cedeno for allowing me to take care of this patient. Signed, Josiah Culver M.D. [id number]
[2017-12-26] MEDS: Albuterol/Ipratropium Neb 3 ML AERS HHN SCH ×6 (02:37→22:40)
[2017-12-26] MEDS: methylPREDNISolone SS 40 mg Vial IVP SCH ×3 (05:28→21:34)
--- NOTE | 2017-12-26 05:38 | Consultation ---
DATE OF CONSULTATION: 12/25/2017 INFECTIOUS DISEASE CONSULTATION REFERRING PHYSICIAN: Dr. Cedeno. REASON FOR CONSULTATION: Pneumonia, sepsis. HISTORY OF PRESENT ILLNESS: The patient is a 77-year-old male with past medical history of hypertension, coronary artery disease, CHF, asthma, COPD, CVA, TIA, thyroid disorder, dementia and pneumonia, admitted to [facility] for agitation towards nursing staff at the nursing facility on 12/23/2017. He was found to have hypoxia on pulse ox. Chest x-ray revealed pneumonia. His WBC count was 16,900, it went up to 21,900. Meanwhile, he was transferred to acute care unit for further care. Antibiotic milian, the patient was started on vancomycin and Zosyn. ID consult was called for further antibiotic management. PAST MEDICAL HISTORY: Includes COPD, CVA, dementia, hypertension, coronary artery disease, asthma, hypothyroidism and CHF. SOCIAL HISTORY: The patient lives at a nursing facility. No history of alcohol or drug use. The patient has history of smoking in the past. PAST SURGICAL HISTORY: Not available. REVIEW OF SYSTEMS: GENERAL: The patient has no fever, no chills. HEENT: No diplopia, no photophobia, no sore throat. RESPIRATORY: The patient has cough and shortness of breath. CARDIOVASCULAR: No chest pain, no palpitation. GASTROINTESTINAL: No nausea, no vomiting, no diarrhea or constipation. GENITOURINARY: No dysuria, no hematuria. NEUROLOGIC: No headache, no dizziness, no focal weakness. PHYSICAL EXAMINATION: VITAL SIGNS: Current vital signs show temperature is 97.3 degrees Fahrenheit, pulse 90, respirations 20, blood pressure 120/60. GENERAL: The patient is comfortable. lying in the bed, not in acute distress. HEENT: Head is normocephalic, atraumatic. Oral cavity moist. [place] tongue. Eyes: Pallor is present. No icterus. PERRLA, EOMI. NECK: Supple. No JVD. Trachea in the midline. No use of accessory muscles. CHEST: Bibas[place] crackles present bilaterally. HEART: S1, S2 within normal limits. Regular rhythm. No murmur. No gallop. ABDOMEN: Soft, nontender, nondistended. Bowel sounds are present. EXTREMITIES: No cyanosis, no clubbing, no edema. NEUROLOGIC: Awake, confused. LABORATORY DATA: Current lab shows WBC count 18,600, hemoglobin 14, hematocrit 42.2, platelets are 433,000, neutrophils 95%. Sodium is 137, potassium 3.4, chloride 101, bicarb is 26.6, BUN is 68, creatinine 1.7, glucose is 154. MRSA screen is negative. Blood culture is so far negative. Chest x-ray shows mild increased in interstitial marking, nonspecific, chronic versus nonfocal consolidation. CT scan of abdomen and pelvis due to bleeding without diverticulitis, mild fecal impaction distally, mild distention of gallbladder with a 6 mm stone within the gallbladder neck, diffuse atherosclerosis. IMPRESSION: 1. Leukocytosis, suspect aspiration pneumonia. 2. Suspect cholecystitis. 3. Chronic obstructive pulmonary disease exacerbation. 4. Respiratory insufficiency with hypoxia. 5. History of cerebrovascular accident. 6. Dementia. 7. Hypertension. 8. Coronary artery disease. RECOMMENDATIONS: We will continue Zosyn, discontinue vancomycin. Check HIDA scan. Thank you Dr. Cedeno for allowing me to take care of this patient. JOB# [id number]
[2017-12-26] MEDS ORDERED: Albuterol/Ipratropium Neb 3 ML AERS HHN ONE (07:23)
[2017-12-26 08:46] LABS: BASOPHILE ABSOLUTE 0.1 Th/cumm (0-0.2)
[2017-12-26 08:54] LABS: % BASOPHILS 0.3 % (0.0-2.0); % EOSINOPHILS 0.2 % (0.0-5.0); % LYMPHOCYTES 3.2 % (20.0-50.0); % MONOCYTES 2.1 % (2.0-10.0); % NEUTROPHILS 94.2 % (40.0-80.0); HEMOGLOBIN 14.1 gm/dL (12-16); LYMPHOCYTE ABSOLUTE 0.7 Th/cmm (1.5-3.0); MEAN CELL VOLUME 88.7 fl (80-99); MEAN CORPUSCULAR HEMOGLOBIN 29.8 pg (27.0-31.0); MEAN CORPUSCULAR HGB CONC 33.6 pg (28.0-36.0); MONOCYTE ABSOLUTE 0.4 Th/cmm (0.3-1.0); PLATELET COUNT 431 Th/cmm (150-400); RED BLOOD COUNT 4.73 Mil/cmm (3.80-5.80); RED CELL DISTRIBUTION WIDTH 13.2 % (11.5-20.0)
[2017-12-26 08:58] LABS: WHITE BLOOD COUNT 21.2 Th/cmm (4.8-10.8)
[2017-12-26 09:08] LABS: ANION GAP 13.8 (7.0-16.0); BUN - UREA NITROGEN 76 mg/dL (7-25); CALCIUM SERUM 10.1 mg/dL (8.6-10.3); CARBON DIOXIDE 28.4 mEq/L (21.0-31.0); CHLORIDE 103 mEq/L (98-107); CREATININE - SERUM 1.7 mg/dL (0.7-1.3); GLUCOSE 147 mg/dL (70-105); POTASSIUM SERUM 3.2 mEq/L (3.5-5.1); SODIUM SERUM 142 mEq/L (136-145)
--- NOTE | 2017-12-26 09:56 | Diagnostic Imaging Report ---
Portable chest x-ray HISTORY: Shortness of breath Compared to prior exam of December 24, 2017, the heart is enlarged. No focal pulmonary processes. No hilar or mediastinal abnormalities. IMPRESSION: 1. Cardiomegaly 2. No focal pulmonary processes
--- NOTE | 2017-12-26 10:33 | GI Progress Note ---
Subjective - Review of Systems Service Date: 12/26/17 Subjective: NG output is green Objective - Results Result Diagrams: 12/26/17 08:00 12/26/17 08:00 Recent Labs: Laboratory Last Values WBC 21.2 Th/cmm (4.8-10.8) H* 12/26/17 08:00 RBC 4.73 Mil/cmm (3.80-5.80) 12/26/17 08:00 Hgb 14.1 gm/dL (12-16) 12/26/17 08:00 Hct 42.0 % (41.0-60) 12/26/17 08:00 MCV 88.7 fl (80-99) 12/26/17 08:00 MCH 29.8 pg (27.0-31.0) 12/26/17 08:00 MCHC Differential 33.6 pg (28.0-36.0) 12/26/17 08:00 RDW 13.2 % (11.5-20.0) 12/26/17 08:00 Plt Count 431 Th/cmm (150-400) H 12/26/17 08:00 MPV 10.0 fl 12/26/17 08:00 Neutrophils % 94.2 % (40.0-80.0) H 12/26/17 08:00 Band Neutrophils % 5 % (0-10) 12/24/17 07:36 Lymphocytes % 3.2 % (20.0-50.0) L 12/26/17 08:00 Monocytes % 2.1 % (2.0-10.0) 12/26/17 08:00 Eosinophils % 0.2 % (0.0-5.0) 12/26/17 08:00 Basophils % 0.3 % (0.0-2.0) 12/26/17 08:00 Neutrophils (Manual) 95 % (40-80) H 12/25/17 15:48 Lymphocytes 4 % (20-50) L 12/25/17 15:48 Monocytes 1 % (2-10) L 12/25/17 15:48 Eosinophils 1 % (0-5) 12/24/17 07:36 Platelet Estimate INCREASED PLATELETS (NORMAL) 12/25/17 15:48 Platelet Morphology GIANT PLATELETS SEEN (NORMAL) 12/25/17 15:48 Specimen Source ARTERIAL 12/23/17 22:58 Sample Site Left Radial 12/23/17 22:58 pH 7.57 (7.35-7.45) H* 12/23/17 22:58 pCO2 35.0 mmHg (35.0-45.0) 12/23/17 22:58 pO2 47.0 mmHg (80.0-100.0) L* 12/23/17 22:58 HCO3 32.2 mEq/L (20.0-26.0) H 12/23/17 22:58 Base Excess 9.6 mEq/L (-3.0-3.0) H 12/23/17 22:58 O2 Saturation 89.0 % (92.0-100.0) L 12/23/17 22:58 Ciro Test Positive 12/23/17 22:58 Vent Rate N/A 12/23/17 22:58 Inspired O2 21 12/23/17 22:58 Tidal Volume N/A 12/23/17 22:58 PEEP N/A 12/23/17 22:58 Pressure (ins/psv/peep) N/A 12/23/17 22:58 Critical Value MMIRANDA,[employer] 12/23/17 22:58 Sodium 142 mEq/L (136-145) 12/26/17 08:00 Potassium 3.2 mEq/L (3.5-5.1) L 12/26/17 08:00 Chloride 103 mEq/L (98-107) 12/26/17 08:00 Carbon Dioxide 28.4 mEq/L (21.0-31.0) 12/26/17 08:00 Anion Gap 13.8 (7.0-16.0) 12/26/17 08:00 BUN 76 mg/dL (7-25) H 12/26/17 08:00 Creatinine 1.7 mg/dL (0.7-1.3) H 12/26/17 08:00 Est GFR ( Amer) TNP 12/26/17 08:00 Est GFR (Non-Af Amer) TNP 12/26/17 08:00 BUN/Creatinine Ratio 44.7 12/26/17 08:00 Glucose 147 mg/dL (70-105) H 12/26/17 08:00 Calcium 10.1 mg/dL (8.6-10.3) 12/26/17 08:00 B-Natriuretic Peptide 146.0 pg/mL (5.0-100.0) H 12/24/17 07:36 Stool Occult Blood NEGATIVE (NEGATIVE) 12/25/17 16:42 Vancomycin Trough 25.1 ug/mL (10-20) H 12/26/17 08:00 - Physical Exam Vitals and I&O: Vital Signs Temp 98 F 12/26/17 04:00 Pulse 72 12/26/17 09:15 Resp 20 12/26/17 07:52 BP 138/69 12/26/17 09:15 Pulse Ox 95 12/26/17 07:52 Intake & Output 12/25/17 12/26/17 12/26/17 18:59 06:59 18:59 Intake Total 100 100 Output Total 800 Balance -700 100 Weight (lbs) 79.923 kg 81.828 kg Intake: Intake, IV Amount 100 50 Piperacillin Sodium/ 100 50 Tazobact 3.375 gm In Sodium Chloride 0.9% 50 ml @ 100 mls/hr IV Q8H [facility] Rx#:[id number] Oral 0 Tube Feeding 0 50 Output: Gastric Drainage 800 Stool 0 Other: # Bowel Movements 0 Active Medications: Current Medications Albuterol/Ipratropium (Duoneb Neb) 3 ml HHN Q2H PRN PRN Reason: Wheezing Stop: 02/21/18 23:39 Albuterol/Ipratropium (Duoneb Neb) 3 ml HHN Q4HRT [facility] Stop: 02/22/18 22:59 Last Admin: 12/26/17 07:52 Dose: 3 ml Amlodipine Besylate (Norvasc) 10 mg GT DAILY [facility] Stop: 02/23/18 08:59 Last Admin: 12/26/17 09:15 Dose: Not Given Bisacodyl (Dulcolax 10 Mg Supp) 10 mg RC DAILY PRN PRN Reason: IF MOM INEFFECTIVE Stop: 02/22/18 19:48 Hydralazine HCl (Apresoline) 50 mg GT Q8HR [facility] Stop: 02/22/18 20:59 Last Admin: 12/26/17 05:48 Dose: 50 mg Hydrochlorothiazide (Hctz) 50 mg GT DAILY [facility] Stop: 02/23/18 08:59 Last Admin: 12/26/17 09:15 Dose: Not Given Piperacillin Sod/Tazobactam (Sod 3.375 gm/ Sodium Chloride) 50 mls @ 100 mls/ hr IV Q8H [facility] Stop: 02/22/18 00:59 Last Admin: 12/26/17 09:33 Dose: 100 mls/hr Levothyroxine Sodium 0.025 mg/ (Levothyroxine Sodium 0.1 mg) 0.125 mg GT DAILY [facility] Stop: 02/23/18 10:44 Last Admin: 12/26/17 09:15 Dose: Not Given Lisinopril (Zestril) 40 mg GT DAILY [facility] Stop: 02/23/18 08:59 Last Admin: 12/26/17 09:15 Dose: Not Given Lorazepam (Ativan) 1 mg IVP Q4HR PRN; Protocol PRN Reason: for restlessnessand agitation Stop: 02/22/18 20:03 Last Admin: 12/25/17 22:25 Dose: 1 mg Magnesium Hydroxide (Milk Of Magnesia) 30 ml GT DAILY PRN PRN Reason: IF NO BM IN TWO DAYS Stop: 02/22/18 19:48 Methylprednisolone Sodium Succinate (Solu-Medrol) 40 mg IVP Q8HR [facility] Stop: 02/22/18 20:59 Last Admin: 12/26/17 05:28 Dose: 40 mg Pantoprazole Sodium (Protonix) 40 mg IVP DAILY [facility] Stop: 02/23/18 08:59 Last Admin: 12/26/17 09:32 Dose: 40 mg Quetiapine Fumarate (Seroquel) 25 mg GT Q8H PRN; Protocol PRN Reason: Psychosis Stop: 02/22/18 19:48 Quetiapine Fumarate (Seroquel) 12.5 mg GT BID [facility] PRN Reason: Protocol Stop: 02/23/18 08:59 Last Admin: 12/26/17 09:16 Dose: Not Given Senna (Senna) 8.6 mg GT BID [facility] Stop: 02/23/18 08:59 Last Admin: 12/26/17 09:16 Dose: Not Given Sodium Phosphate (Fleet Enema) 135 ml RC DAILY PRN PRN Reason: IF MOM OR DULCOLAX INEFFECTIVE Stop: 02/22/18 19:48 Temazepam (Restoril) 15 mg PO HS PRN; Protocol PRN Reason: Insomnia Stop: 02/23/18 17:30 HEENT: no Atraumatic Neck: Supple Cardiovascular: Regular rate Abdomen: Bowel sounds, Soft, no Tender, no Hepatomegaly, no Rebound, no Mass, no Guarding Skin: no Rash Assessment/Plan - Assessment Assessment: 77 YO MALE WITH POSSIBLE UGI BLEED, although low probability given green NG output HGB IS NORMAL X 2 NO OVERT GI BLEED 1.CHECK GASTRIC CONTENT OCCULT TESTING, not yet done 2.MAY NEED EGD IF OCCULT TESTING IS POSITIVE OR GI BLEEDING DEVELOPS 3.PROTONIX 4.FOLLOW H/H
--- NOTE | 2017-12-26 11:20 | Progress Notes ---
DATE: SUBJECTIVE: Chart reviewed and the patient interviewed. Also discussed the patient's condition with the staff and reviewed records and labs. The patient is still agitated and is still unirritable and . The patient also is still restless and unable to follow any of the staff directions. The patient also is having difficulty following directions and he is having episodes of yelling and screaming and restless, also did not sleep most of last night. ASSESSMENT: The patient is still agitated and psychotic. TREATMENT PLAN: Continue to monitor his behavior and his condition closely and continue adjusting psychotropic medications and followup. JOB# [id number]
[2017-12-26] MEDS: D5-0.45NS 1,000 ML IV SCH (20:21)
[2017-12-27] MEDS: Albuterol/Ipratropium Neb 3 ML AERS HHN SCH ×6 (03:03→22:35)
[2017-12-27 05:39] LABS: BASOPHILE ABSOLUTE 0.1 Th/cumm (0-0.2); HEMATOCRIT 42.4 % (41.0-60); HEMOGLOBIN 13.8 gm/dL (12-16); LYMPHOCYTE ABSOLUTE 0.6 Th/cmm (1.5-3.0); MANUAL DIFF REQUIRED? YES; MEAN CELL VOLUME 89.1 fl (80-99); MEAN CORPUSCULAR HEMOGLOBIN 28.9 pg (27.0-31.0); MEAN CORPUSCULAR HGB CONC 32.5 pg (28.0-36.0); MEAN PLATELET VOLUME 9.7 fl; MONOCYTE ABSOLUTE 0.3 Th/cmm (0.3-1.0); NEUTROPHILE ABSOLUTE 14.9 Th/cmm (1.8-8.0); PLATELET COUNT 471 Th/cmm (150-400); RED BLOOD COUNT 4.76 Mil/cmm (3.80-5.80); RED CELL DISTRIBUTION WIDTH 13.4 % (11.5-20.0)
[2017-12-27 05:52] LABS: WHITE BLOOD COUNT 15.9 Th/cmm (4.8-10.8)
[2017-12-27 06:00] LABS: ALB/GLOB RATIO 1.1 (1.0-1.8); ALBUMIN 3.5 gm/dL (4.2-5.5); ALKALINE PHOSPHATASE 97 U/L (34-104); ANION GAP 11.4 (7.0-16.0); BILIRUBIN,DIRECT 0.54 mg/dL (0.0-0.2); BILIRUBIN,TOTAL 1.4 mg/dL (0.3-1.0); BUN - UREA NITROGEN 79 mg/dL (7-25); CALCIUM SERUM 9.9 mg/dL (8.6-10.3); CARBON DIOXIDE 27.9 mEq/L (21.0-31.0); CHLORIDE 109 mEq/L (98-107); CREATININE - SERUM 1.9 mg/dL (0.7-1.3); GLUCOSE 179 mg/dL (70-105); POTASSIUM SERUM 3.3 mEq/L (3.5-5.1); SGOT 66 U/L (13-39); SGPT/ALT 79 U/L (7-52); SODIUM SERUM 145 mEq/L (136-145); TOTAL PROTEIN,SERUM 6.8 gm/dL (6.0-8.3)
[2017-12-27] MEDS: methylPREDNISolone SS 40 mg Vial IVP SCH ×3 (06:06→21:55)
--- NOTE | 2017-12-27 08:19 | GI Progress Note ---
Subjective - Review of Systems Service Date: 12/27/17 Subjective: NG has been removed, no evidence of bleeding Objective - Results Result Diagrams: 12/27/17 05:33 12/27/17 05:33 Recent Labs: Laboratory Last Values WBC 15.9 Th/cmm (4.8-10.8) H D 12/27/17 05:33 RBC 4.76 Mil/cmm (3.80-5.80) 12/27/17 05:33 Hgb 13.8 gm/dL (12-16) 12/27/17 05:33 Hct 42.4 % (41.0-60) 12/27/17 05:33 MCV 89.1 fl (80-99) 12/27/17 05:33 MCH 28.9 pg (27.0-31.0) 12/27/17 05:33 MCHC Differential 32.5 pg (28.0-36.0) 12/27/17 05:33 RDW 13.4 % (11.5-20.0) 12/27/17 05:33 Plt Count 471 Th/cmm (150-400) H 12/27/17 05:33 MPV 9.7 fl 12/27/17 05:33 Neutrophils % 94.2 % (40.0-80.0) H 12/26/17 08:00 Band Neutrophils % 5 % (0-10) 12/24/17 07:36 Lymphocytes % 3.2 % (20.0-50.0) L 12/26/17 08:00 Monocytes % 2.1 % (2.0-10.0) 12/26/17 08:00 Eosinophils % 0.2 % (0.0-5.0) 12/26/17 08:00 Basophils % 0.3 % (0.0-2.0) 12/26/17 08:00 Neutrophils (Manual) 95 % (40-80) H 12/25/17 15:48 Lymphocytes 4 % (20-50) L 12/25/17 15:48 Monocytes 1 % (2-10) L 12/25/17 15:48 Eosinophils 1 % (0-5) 12/24/17 07:36 Platelet Estimate INCREASED PLATELETS (NORMAL) 12/25/17 15:48 Platelet Morphology GIANT PLATELETS SEEN (NORMAL) 12/25/17 15:48 Specimen Source ARTERIAL 12/23/17 22:58 Sample Site Left Radial 12/23/17 22:58 pH 7.57 (7.35-7.45) H* 12/23/17 22:58 pCO2 35.0 mmHg (35.0-45.0) 12/23/17 22:58 pO2 47.0 mmHg (80.0-100.0) L* 12/23/17 22:58 HCO3 32.2 mEq/L (20.0-26.0) H 12/23/17 22:58 Base Excess 9.6 mEq/L (-3.0-3.0) H 12/23/17 22:58 O2 Saturation 89.0 % (92.0-100.0) L 12/23/17 22:58 Ciro Test Positive 12/23/17 22:58 Vent Rate N/A 12/23/17 22:58 Inspired O2 21 12/23/17 22:58 Tidal Volume N/A 12/23/17 22:58 PEEP N/A 12/23/17 22:58 Pressure (ins/psv/peep) N/A 12/23/17 22:58 Critical Value MMIRANDA,LAVATORY ATTENDANT 12/23/17 22:58 Sodium 145 mEq/L (136-145) 12/27/17 05:33 Potassium 3.3 mEq/L (3.5-5.1) L 12/27/17 05:33 Chloride 109 mEq/L (98-107) H 12/27/17 05:33 Carbon Dioxide 27.9 mEq/L (21.0-31.0) 12/27/17 05:33 Anion Gap 11.4 (7.0-16.0) 12/27/17 05:33 BUN 79 mg/dL (7-25) H 12/27/17 05:33 Creatinine 1.9 mg/dL (0.7-1.3) H 12/27/17 05:33 Est GFR ( Amer) TNP 12/27/17 05:33 Est GFR (Non-Af Amer) TNP 12/27/17 05:33 BUN/Creatinine Ratio 41.6 12/27/17 05:33 Glucose 179 mg/dL (70-105) H 12/27/17 05:33 Calcium 9.9 mg/dL (8.6-10.3) 12/27/17 05:33 Total Bilirubin 1.4 mg/dL (0.3-1.0) H 12/27/17 05:33 Direct Bilirubin 0.54 mg/dL (0.0-0.2) H 12/27/17 05:33 AST 66 U/L (13-39) H 12/27/17 05:33 ALT 79 U/L (7-52) H 12/27/17 05:33 Alkaline Phosphatase 97 U/L (34-104) 12/27/17 05:33 Ammonia 55 umol/L (16-53) H 12/27/17 05:33 B-Natriuretic Peptide 146.0 pg/mL (5.0-100.0) H 12/24/17 07:36 Total Protein 6.8 gm/dL (6.0-8.3) 12/27/17 05:33 Albumin 3.5 gm/dL (4.2-5.5) L 12/27/17 05:33 Globulin 3.3 gm/dL 12/27/17 05:33 Albumin/Globulin Ratio 1.1 (1.0-1.8) 12/27/17 05:33 Stool Occult Blood NEGATIVE (NEGATIVE) 12/25/17 16:42 Vancomycin Trough 25.1 ug/mL (10-20) H 12/26/17 08:00 - Physical Exam Vitals and I&O: Vital Signs Temp 97.8 F 12/27/17 04:00 Pulse 95 12/27/17 07:11 Resp 20 12/27/17 07:11 BP 168/76 12/27/17 06:06 Pulse Ox 95 12/27/17 07:11 Intake & Output 12/26/17 12/27/17 12/27/17 18:59 06:59 18:59 Intake Total 100 100 Output Total 50 Balance 50 100 Weight (lbs) 81.647 kg 81.647 kg Intake: Intake, IV Amount 100 Piperacillin Sodium/ 100 Tazobact 3.375 gm In Sodium Chloride 0.9% 50 ml @ 100 mls/hr IV Q8H [facility] Rx#:[id number] Tube Feeding 100 Output: Gastric Drainage 50 Other: # Voids 3 # Bowel Movements 0 Active Medications: Current Medications Albuterol/Ipratropium (Duoneb Neb) 3 ml HHN Q2H PRN PRN Reason: Wheezing Stop: 02/21/18 23:39 Albuterol/Ipratropium (Duoneb Neb) 3 ml HHN Q4HRT [facility] Stop: 02/22/18 22:59 Last Admin: 12/27/17 07:11 Dose: 3 ml Amlodipine Besylate (Norvasc) 10 mg GT DAILY [facility] Stop: 02/23/18 08:59 Last Admin: 12/26/17 09:15 Dose: Not Given Bisacodyl (Dulcolax 10 Mg Supp) 10 mg RC DAILY PRN PRN Reason: IF MOM INEFFECTIVE Stop: 02/22/18 19:48 Hydralazine HCl (Apresoline) 50 mg GT Q8HR [facility] Stop: 02/22/18 20:59 Last Admin: 12/27/17 06:06 Dose: 50 mg Hydrochlorothiazide (Hctz) 50 mg GT DAILY [facility] Stop: 02/23/18 08:59 Last Admin: 12/26/17 09:15 Dose: Not Given Piperacillin Sod/Tazobactam (Sod 3.375 gm/ Sodium Chloride) 50 mls @ 100 mls/ hr IV Q8H [facility] Stop: 02/22/18 00:59 Last Admin: 12/27/17 00:35 Dose: 100 mls/hr Dextrose/Sodium Chloride (D5-0.45ns) 1,000 mls @ 75 mls/hr IV .[id number] [facility] Stop: 02/24/18 19:49 Last Admin: 12/26/17 20:21 Dose: 75 mls/hr Levothyroxine Sodium 0.025 mg/ (Levothyroxine Sodium 0.1 mg) 0.125 mg GT DAILY [facility] Stop: 02/23/18 10:44 Last Admin: 12/26/17 09:15 Dose: Not Given Lisinopril (Zestril) 40 mg GT DAILY [facility] Stop: 02/23/18 08:59 Last Admin: 12/26/17 09:15 Dose: Not Given Lorazepam (Ativan) 1 mg IVP Q4HR PRN; Protocol PRN Reason: for restlessnessand agitation Stop: 02/22/18 20:03 Last Admin: 12/27/17 03:24 Dose: 1 mg Magnesium Hydroxide (Milk Of Magnesia) 30 ml GT DAILY PRN PRN Reason: IF NO BM IN TWO DAYS Stop: 02/22/18 19:48 Methylprednisolone Sodium Succinate (Solu-Medrol) 40 mg IVP Q8HR [facility] Stop: 02/22/18 20:59 Last Admin: 12/27/17 06:06 Dose: 40 mg Pantoprazole Sodium (Protonix) 40 mg IVP DAILY [facility] Stop: 02/23/18 08:59 Last Admin: 12/26/17 09:32 Dose: 40 mg Quetiapine Fumarate (Seroquel) 25 mg GT Q8H PRN; Protocol PRN Reason: Psychosis Stop: 02/22/18 19:48 Quetiapine Fumarate (Seroquel) 12.5 mg GT BID [facility] PRN Reason: Protocol Stop: 02/23/18 08:59 Last Admin: 12/26/17 16:24 Dose: Not Given Senna (Senna) 8.6 mg GT BID [facility] Stop: 02/23/18 08:59 Last Admin: 12/26/17 16:24 Dose: Not Given Sodium Phosphate (Fleet Enema) 135 ml RC DAILY PRN PRN Reason: IF MOM OR DULCOLAX INEFFECTIVE Stop: 02/22/18 19:48 Temazepam (Restoril) 15 mg PO HS PRN; Protocol PRN Reason: Insomnia Stop: 02/23/18 17:30 HEENT: no Atraumatic Neck: Supple Cardiovascular: Regular rate Abdomen: Bowel sounds, Soft, no Tender, no Hepatomegaly, no Rebound, no Mass, no Guarding Skin: no Rash Assessment/Plan - Assessment Assessment: 77 YO MALE WITH POSSIBLE UGI BLEED, although low probability given green NG output HGB IS NORMAL X 2 NO OVERT GI BLEED GI asked about removing G tube. This can be done if he passes a swallow evaluation. In meantime, recommend G tube feeding. 1.cont tube feeds for now 2.f/u swallow eval prior to G tube removal 3.PROTONIX 4.FOLLOW H/H
[2017-12-27 08:30] LABS: BAND NEUTROPHILE 1 % (0-10); LYMPHOCYTE 2 % (20-50); MONOCYTE 6 % (2-10); NEUTROPHILS 91 % (40-80); PLATELET ESTIMATE INCREASED PLATELETS (NORMAL); TOTAL CELLS COUNTED 100
--- NOTE | 2017-12-27 08:33 | Diagnostic Imaging Report ---
Radionuclide biliary scan (HIDA scan) HISTORY: Pain 5.2 mCi technetium labeled biliary age and was used in the exam. The exam demonstrates normal hepatic uptake and clearance. Activity noted within the gallbladder. However, no significant activity identified in the region of the common bile duct and small bowel 3 -- 4 hours. Changes related to a common bile duct obstruction cannot be excluded. Clinical correlation is needed. IMPRESSION: 1. Normal activity within the gallbladder 2. Nonvisualization of the common bile duct and small bowel. Changes related to common bile duct obstruction cannot be excluded. Clinical correlation and correlation with laboratory data needed. An MRCP may be helpful.
[2017-12-27] MEDS: D5-0.45NS 1,000 ML IV SCH ×2 (10:20→23:07)
[2017-12-27] MEDS ORDERED: Potassium Chloride Elixir 20 mEq /15 mL UDC GT ONE (10:22)
--- NOTE | 2017-12-27 10:47 | Progress Notes ---
DATE: 12/27/2017 SUBJECTIVE: The patient was seen in his room, lying in the bed. The patient is a poor historian due to medical condition. Otherwise, the patient appears to be in no distress. OBJECTIVE: VITAL SIGNS: Temperature 97.8, heart rate of 85, blood pressure 102/48, respirations 20, 95% on room air. HEENT: Head is atraumatic and normocephalic. Eyes: Bilateral conjunctivae are clear. Bilateral pupils are equally round and reactive. NECK: Supple. No JVD. CARDIOVASCULAR: S1 and S2, without murmur. PULMONARY: Decreased breath sounds. GASTROINTESTINAL: Soft and nontender without guarding. Positive bowel sounds. Positive gastrostomy tube. MUSCULOSKELETAL: No clubbing. No cyanosis noted. ASSESSMENT: 1. Acute chronic obstructive pulmonary disease. 2. Pneumonia. 3. Dysphagia. 4. History of cerebrovascular accident. 5. Hypertension. 6. Coronary artery disease. PLAN: We will continue current antibiotics and for the patient aspiration precaution. We will also going to replace patient's potassium for today. We are going to give the patient 40 mEq of potassium chloride and will repeat the blood test tomorrow. Treatment plans were discussed with the patient's nurse. Treatment plans were discussed with Dr. Cedeno. [facility]# [id number]
--- NOTE | 2017-12-27 22:46 | Progress Notes ---
DATE: 12/27/[address] Bean. Case was discussed with staff of patient, reviewed records. The patient continues to be restless. Continues to be irritable at times, unable to follow direction with episodes of lack of sleep. Dr. Bean have him on Seroquel as needed 25 mg ____ G-tube and 12.5 mg twice a day with no side effects, no sedation or nausea. Thank you very much for allowing me to participate in the care of this most interesting patient. JOB# [id number]
[2017-12-28] MEDS: Albuterol/Ipratropium Neb 3 ML AERS HHN SCH ×6 (02:46→22:40)
[2017-12-28] MEDS: methylPREDNISolone SS 40 mg Vial IVP SCH ×3 (05:07→23:12)
[2017-12-28 07:09] LABS: HEMATOCRIT 42.8 % (41.0-60); HEMOGLOBIN 13.9 gm/dL (12-16); LYMPHOCYTE ABSOLUTE 0.6 Th/cmm (1.5-3.0); MANUAL DIFF REQUIRED? YES; MEAN CELL VOLUME 88.9 fl (80-99); MEAN CORPUSCULAR HGB CONC 32.6 pg (28.0-36.0); MEAN PLATELET VOLUME 9.6 fl; MONOCYTE ABSOLUTE 0.5 Th/cmm (0.3-1.0); NEUTROPHILE ABSOLUTE 11.4 Th/cmm (1.8-8.0); PLATELET COUNT 370 Th/cmm (150-400); RED BLOOD COUNT 4.81 Mil/cmm (3.80-5.80); RED CELL DISTRIBUTION WIDTH 13.5 % (11.5-20.0)
[2017-12-28 07:11] LABS: WHITE BLOOD COUNT 12.5 Th/cmm (4.8-10.8)
[2017-12-28 07:15] LABS: ALB/GLOB RATIO 1.1 (1.0-1.8); ALBUMIN 3.5 gm/dL (4.2-5.5); ALKALINE PHOSPHATASE 89 U/L (34-104); ANION GAP 11.8 (7.0-16.0); BILIRUBIN,TOTAL 1.5 mg/dL (0.3-1.0); BUN - UREA NITROGEN 61 mg/dL (7-25); CALCIUM SERUM 9.8 mg/dL (8.6-10.3); CARBON DIOXIDE 27.6 mEq/L (21.0-31.0); CHLORIDE 109 mEq/L (98-107); CREATININE - SERUM 1.5 mg/dL (0.7-1.3); GLUCOSE 176 mg/dL (70-105); POTASSIUM SERUM 3.4 mEq/L (3.5-5.1); SGOT 109 U/L (13-39); SGPT/ALT 117 U/L (7-52); SODIUM SERUM 145 mEq/L (136-145); TOTAL PROTEIN,SERUM 6.6 gm/dL (6.0-8.3)
--- NOTE | 2017-12-28 09:10 | General Progress Note ---
Subjective - Review of Systems Events since last encounter: patient irritable with trouble sleeping at night Objective - Results Result Diagrams: 12/28/17 06:33 12/28/17 06:33 Recent Labs: Laboratory Last Values WBC 12.5 Th/cmm (4.8-10.8) H 12/28/17 06:33 RBC 4.81 Mil/cmm (3.80-5.80) 12/28/17 06:33 Hgb 13.9 gm/dL (12-16) 12/28/17 06:33 Hct 42.8 % (41.0-60) 12/28/17 06:33 MCV 88.9 fl (80-99) 12/28/17 06:33 MCH 29.0 pg (27.0-31.0) 12/28/17 06:33 MCHC Differential 32.6 pg (28.0-36.0) 12/28/17 06:33 RDW 13.5 % (11.5-20.0) 12/28/17 06:33 Plt Count 370 Th/cmm (150-400) 12/28/17 06:33 MPV 9.6 fl 12/28/17 06:33 Neutrophils % 94.2 % (40.0-80.0) H 12/26/17 08:00 Band Neutrophils % 1 % (0-10) 12/27/17 05:33 Lymphocytes % 3.2 % (20.0-50.0) L 12/26/17 08:00 Monocytes % 2.1 % (2.0-10.0) 12/26/17 08:00 Eosinophils % 0.2 % (0.0-5.0) 12/26/17 08:00 Basophils % 0.3 % (0.0-2.0) 12/26/17 08:00 Neutrophils (Manual) 91 % (40-80) H 12/27/17 05:33 Lymphocytes 2 % (20-50) L 12/27/17 05:33 Monocytes 6 % (2-10) 12/27/17 05:33 Eosinophils 1 % (0-5) 12/24/17 07:36 Platelet Estimate INCREASED PLATELETS (NORMAL) 12/27/17 05:33 Platelet Morphology GIANT PLATELETS SEEN (NORMAL) 12/25/17 15:48 Specimen Source ARTERIAL 12/23/17 22:58 Sample Site Left Radial 12/23/17 22:58 pH 7.57 (7.35-7.45) H* 12/23/17 22:58 pCO2 35.0 mmHg (35.0-45.0) 12/23/17 22:58 pO2 47.0 mmHg (80.0-100.0) L* 12/23/17 22:58 HCO3 32.2 mEq/L (20.0-26.0) H 12/23/17 22:58 Base Excess 9.6 mEq/L (-3.0-3.0) H 12/23/17 22:58 O2 Saturation 89.0 % (92.0-100.0) L 12/23/17 22:58 Ciro Test Positive 12/23/17 22:58 Vent Rate N/A 12/23/17 22:58 Inspired O2 21 12/23/17 22:58 Tidal Volume N/A 12/23/17 22:58 PEEP N/A 12/23/17 22:58 Pressure (ins/psv/peep) N/A 12/23/17 22:58 Critical Value MMIRANDA,ABSTRACTER 12/23/17 22:58 Sodium 145 mEq/L (136-145) 12/28/17 06:33 Potassium 3.4 mEq/L (3.5-5.1) L 12/28/17 06:33 Chloride 109 mEq/L (98-107) H 12/28/17 06:33 Carbon Dioxide 27.6 mEq/L (21.0-31.0) 12/28/17 06:33 Anion Gap 11.8 (7.0-16.0) 12/28/17 06:33 BUN 61 mg/dL (7-25) H 12/28/17 06:33 Creatinine 1.5 mg/dL (0.7-1.3) H 12/28/17 06:33 Est GFR ( Amer) TNP 12/28/17 06:33 Est GFR (Non-Af Amer) TNP 12/28/17 06:33 BUN/Creatinine Ratio 40.7 12/28/17 06:33 Glucose 176 mg/dL (70-105) H 12/28/17 06:33 Calcium 9.8 mg/dL (8.6-10.3) 12/28/17 06:33 Total Bilirubin 1.5 mg/dL (0.3-1.0) H 12/28/17 06:33 Direct Bilirubin 0.54 mg/dL (0.0-0.2) H 12/27/17 05:33 AST 109 U/L (13-39) H 12/28/17 06:33 ALT 117 U/L (7-52) H 12/28/17 06:33 Alkaline Phosphatase 89 U/L (34-104) 12/28/17 06:33 Ammonia 55 umol/L (16-53) H 12/27/17 05:33 B-Natriuretic Peptide 146.0 pg/mL (5.0-100.0) H 12/24/17 07:36 Total Protein 6.6 gm/dL (6.0-8.3) 12/28/17 06:33 Albumin 3.5 gm/dL (4.2-5.5) L 12/28/17 06:33 Globulin 3.1 gm/dL 12/28/17 06:33 Albumin/Globulin Ratio 1.1 (1.0-1.8) 12/28/17 06:33 Stool Occult Blood NEGATIVE (NEGATIVE) 12/25/17 16:42 Vancomycin Trough 25.1 ug/mL (10-20) H 12/26/17 08:00 - Physical Exam Vitals and I&O: Vital Signs Temp 98.7 F 12/28/17 06:00 Pulse 68 12/28/17 06:59 Resp 18 12/28/17 06:59 BP 126/75 12/28/17 06:00 Pulse Ox 99 12/28/17 06:59 Intake & Output 12/27/17 12/28/17 12/28/17 18:59 06:59 18:59 Intake Total 1100 1178.75 Balance 1100 1178.75 Weight (lbs) 81.012 kg Intake: Intake, IV Amount 1100 958.75 D5-0.45NS 1,000 ml @ 75 1000 958.75 mls/hr IV .[id number] [facility] Rx #:[id number] Piperacillin Sodium/ 100 Tazobact 3.375 gm In Sodium Chloride 0.9% 50 ml @ 100 mls/hr IV Q8H [facility] Rx#:[id number] Tube Feeding 220 Other: # Voids 3 Active Medications: Current Medications Albuterol/Ipratropium (Duoneb Neb) 3 ml HHN Q2H PRN PRN Reason: Wheezing Stop: 02/21/18 23:39 Albuterol/Ipratropium (Duoneb Neb) 3 ml HHN Q4HRT [facility] Stop: 02/22/18 22:59 Last Admin: 12/28/17 06:59 Dose: 3 ml Amlodipine Besylate (Norvasc) 10 mg GT DAILY [facility] Stop: 02/23/18 08:59 Last Admin: 12/27/17 09:23 Dose: 10 mg Bisacodyl (Dulcolax 10 Mg Supp) 10 mg RC DAILY PRN PRN Reason: IF MOM INEFFECTIVE Stop: 02/22/18 19:48 Hydralazine HCl (Apresoline) 50 mg GT Q8HR [facility] Stop: 02/22/18 20:59 Last Admin: 12/28/17 05:07 Dose: 50 mg Hydrochlorothiazide (Hctz) 50 mg GT DAILY [facility] Stop: 02/23/18 08:59 Last Admin: 12/27/17 09:22 Dose: 50 mg Piperacillin Sod/Tazobactam (Sod 3.375 gm/ Sodium Chloride) 50 mls @ 100 mls/ hr IV Q8H [facility] Stop: 02/22/18 00:59 Last Admin: 12/28/17 00:37 Dose: 100 mls/hr Dextrose/Sodium Chloride (D5-0.45ns) 1,000 mls @ 75 mls/hr IV .[id number] [facility] Stop: 02/24/18 19:49 Last Admin: 12/27/17 23:07 Dose: 75 mls/hr Levothyroxine Sodium 0.025 mg/ (Levothyroxine Sodium 0.1 mg) 0.125 mg GT DAILY [facility] Stop: 02/23/18 10:44 Last Admin: 12/27/17 09:22 Dose: 0.125 mg Lisinopril (Zestril) 40 mg GT DAILY [facility] Stop: 02/23/18 08:59 Last Admin: 12/27/17 09:21 Dose: 40 mg Lorazepam (Ativan) 1 mg IVP Q4HR PRN; Protocol PRN Reason: for restlessnessand agitation Stop: 02/22/18 20:03 Last Admin: 12/27/17 21:56 Dose: 1 mg Magnesium Hydroxide (Milk Of Magnesia) 30 ml GT DAILY PRN PRN Reason: IF NO BM IN TWO DAYS Stop: 02/22/18 19:48 Methylprednisolone Sodium Succinate (Solu-Medrol) 40 mg IVP Q8HR [facility] Stop: 02/22/18 20:59 Last Admin: 12/28/17 05:07 Dose: 40 mg Pantoprazole Sodium (Protonix) 40 mg IVP DAILY [facility] Stop: 02/23/18 08:59 Last Admin: 12/27/17 09:21 Dose: 40 mg Quetiapine Fumarate (Seroquel) 25 mg GT Q8H PRN; Protocol PRN Reason: Psychosis Stop: 02/22/18 19:48 Last Admin: 12/28/17 00:52 Dose: 25 mg Quetiapine Fumarate (Seroquel) 12.5 mg GT BID [facility] PRN Reason: Protocol Stop: 02/23/18 08:59 Last Admin: 12/27/17 16:41 Dose: 12.5 mg Senna (Senna) 8.6 mg GT BID [facility] Stop: 02/23/18 08:59 Last Admin: 12/27/17 16:41 Dose: 8.6 mg Sodium Phosphate (Fleet Enema) 135 ml RC DAILY PRN PRN Reason: IF MOM OR DULCOLAX INEFFECTIVE Stop: 02/22/18 19:48 Temazepam (Restoril) 15 mg PO HS PRN; Protocol PRN Reason: Insomnia Stop: 02/23/18 17:30 Last Admin: 12/28/17 00:53 Dose: 15 mg HEENT: no Atraumatic Neck: Supple Cardiovascular: Regular rate Abdomen: Bowel sounds, Soft, no Tender, no Hepatomegaly, no Rebound, no Mass, no Guarding Skin: no Rash
[2017-12-28 10:33] LABS: LYMPHOCYTE 4 % (20-50); MONOCYTE 5 % (2-10); NEUTROPHILS 91 % (40-80); PLATELET ESTIMATE ADEQUATE (NORMAL); TOTAL CELLS COUNTED 100
--- NOTE | 2017-12-28 11:58 | GI Progress Note ---
Subjective - Review of Systems Subjective: No new events Objective - Results Result Diagrams: 12/28/17 06:33 12/28/17 06:33 Recent Labs: Laboratory Last Values WBC 12.5 Th/cmm (4.8-10.8) H 12/28/17 06:33 RBC 4.81 Mil/cmm (3.80-5.80) 12/28/17 06:33 Hgb 13.9 gm/dL (12-16) 12/28/17 06:33 Hct 42.8 % (41.0-60) 12/28/17 06:33 MCV 88.9 fl (80-99) 12/28/17 06:33 MCH 29.0 pg (27.0-31.0) 12/28/17 06:33 MCHC Differential 32.6 pg (28.0-36.0) 12/28/17 06:33 RDW 13.5 % (11.5-20.0) 12/28/17 06:33 Plt Count 370 Th/cmm (150-400) 12/28/17 06:33 MPV 9.6 fl 12/28/17 06:33 Neutrophils % 94.2 % (40.0-80.0) H 12/26/17 08:00 Band Neutrophils % 1 % (0-10) 12/27/17 05:33 Lymphocytes % 3.2 % (20.0-50.0) L 12/26/17 08:00 Monocytes % 2.1 % (2.0-10.0) 12/26/17 08:00 Eosinophils % 0.2 % (0.0-5.0) 12/26/17 08:00 Basophils % 0.3 % (0.0-2.0) 12/26/17 08:00 Neutrophils (Manual) 91 % (40-80) H 12/28/17 06:33 Lymphocytes 4 % (20-50) L 12/28/17 06:33 Monocytes 5 % (2-10) 12/28/17 06:33 Eosinophils 1 % (0-5) 12/24/17 07:36 Platelet Estimate ADEQUATE (NORMAL) 12/28/17 06:33 Platelet Morphology GIANT PLATELETS SEEN (NORMAL) 12/25/17 15:48 Specimen Source ARTERIAL 12/23/17 22:58 Sample Site Left Radial 12/23/17 22:58 pH 7.57 (7.35-7.45) H* 12/23/17 22:58 pCO2 35.0 mmHg (35.0-45.0) 12/23/17 22:58 pO2 47.0 mmHg (80.0-100.0) L* 12/23/17 22:58 HCO3 32.2 mEq/L (20.0-26.0) H 12/23/17 22:58 Base Excess 9.6 mEq/L (-3.0-3.0) H 12/23/17 22:58 O2 Saturation 89.0 % (92.0-100.0) L 12/23/17 22:58 Ciro Test Positive 12/23/17 22:58 Vent Rate N/A 12/23/17 22:58 Inspired O2 21 12/23/17 22:58 Tidal Volume N/A 12/23/17 22:58 PEEP N/A 12/23/17 22:58 Pressure (ins/psv/peep) N/A 12/23/17 22:58 Critical Value MMIRANDA,INSURANCE RATER 12/23/17 22:58 Sodium 145 mEq/L (136-145) 12/28/17 06:33 Potassium 3.4 mEq/L (3.5-5.1) L 12/28/17 06:33 Chloride 109 mEq/L (98-107) H 12/28/17 06:33 Carbon Dioxide 27.6 mEq/L (21.0-31.0) 12/28/17 06:33 Anion Gap 11.8 (7.0-16.0) 12/28/17 06:33 BUN 61 mg/dL (7-25) H 12/28/17 06:33 Creatinine 1.5 mg/dL (0.7-1.3) H 12/28/17 06:33 Est GFR ( Amer) TNP 12/28/17 06:33 Est GFR (Non-Af Amer) TNP 12/28/17 06:33 BUN/Creatinine Ratio 40.7 12/28/17 06:33 Glucose 176 mg/dL (70-105) H 12/28/17 06:33 Calcium 9.8 mg/dL (8.6-10.3) 12/28/17 06:33 Total Bilirubin 1.5 mg/dL (0.3-1.0) H 12/28/17 06:33 Direct Bilirubin 0.54 mg/dL (0.0-0.2) H 12/27/17 05:33 AST 109 U/L (13-39) H 12/28/17 06:33 ALT 117 U/L (7-52) H 12/28/17 06:33 Alkaline Phosphatase 89 U/L (34-104) 12/28/17 06:33 Ammonia 55 umol/L (16-53) H 12/27/17 05:33 B-Natriuretic Peptide 146.0 pg/mL (5.0-100.0) H 12/24/17 07:36 Total Protein 6.6 gm/dL (6.0-8.3) 12/28/17 06:33 Albumin 3.5 gm/dL (4.2-5.5) L 12/28/17 06:33 Globulin 3.1 gm/dL 12/28/17 06:33 Albumin/Globulin Ratio 1.1 (1.0-1.8) 12/28/17 06:33 Stool Occult Blood NEGATIVE (NEGATIVE) 12/25/17 16:42 Vancomycin Trough 25.1 ug/mL (10-20) H 12/26/17 08:00 - Physical Exam Vitals and I&O: Vital Signs Temp 98.7 F 12/28/17 06:00 Pulse 68 12/28/17 10:59 Resp 19 12/28/17 10:59 BP 115/70 12/28/17 09:52 Pulse Ox 98 12/28/17 10:59 Intake & Output 12/27/17 12/28/17 12/28/17 18:59 06:59 18:59 Intake Total 1100 1228.75 Balance 1100 1228.75 Weight (lbs) 81.012 kg Intake: Intake, IV Amount 1100 1008.75 D5-0.45NS 1,000 ml @ 75 1000 958.75 mls/hr IV .[id number] [facility] Rx #:[id number] Piperacillin Sodium/ 100 50 Tazobact 3.375 gm In Sodium Chloride 0.9% 50 ml @ 100 mls/hr IV Q8H [facility] Rx#:[id number] Tube Feeding 220 Other: # Voids 3 Active Medications: Current Medications Albuterol/Ipratropium (Duoneb Neb) 3 ml HHN Q2H PRN PRN Reason: Wheezing Stop: 02/21/18 23:39 Albuterol/Ipratropium (Duoneb Neb) 3 ml HHN Q4HRT [facility] Stop: 02/22/18 22:59 Last Admin: 12/28/17 10:59 Dose: 3 ml Amlodipine Besylate (Norvasc) 10 mg GT DAILY [facility] Stop: 02/23/18 08:59 Last Admin: 12/28/17 09:50 Dose: 10 mg Bisacodyl (Dulcolax 10 Mg Supp) 10 mg RC DAILY PRN PRN Reason: IF MOM INEFFECTIVE Stop: 02/22/18 19:48 Hydralazine HCl (Apresoline) 50 mg GT Q8HR [facility] Stop: 02/22/18 20:59 Last Admin: 12/28/17 05:07 Dose: 50 mg Hydrochlorothiazide (Hctz) 50 mg GT DAILY [facility] Stop: 02/23/18 08:59 Last Admin: 12/28/17 09:52 Dose: 50 mg Piperacillin Sod/Tazobactam (Sod 3.375 gm/ Sodium Chloride) 50 mls @ 100 mls/ hr IV Q8H [facility] Stop: 02/22/18 00:59 Last Admin: 12/28/17 09:54 Dose: 100 mls/hr Dextrose/Sodium Chloride (D5-0.45ns) 1,000 mls @ 75 mls/hr IV .[id number] [facility] Stop: 02/24/18 19:49 Last Admin: 12/27/17 23:07 Dose: 75 mls/hr Levothyroxine Sodium 0.025 mg/ (Levothyroxine Sodium 0.1 mg) 0.125 mg GT DAILY [facility] Stop: 02/23/18 10:44 Last Admin: 12/28/17 09:51 Dose: 0.125 mg Lisinopril (Zestril) 40 mg GT DAILY [facility] Stop: 02/23/18 08:59 Last Admin: 12/28/17 09:52 Dose: 40 mg Lorazepam (Ativan) 1 mg IVP Q4HR PRN; Protocol PRN Reason: for restlessnessand agitation Stop: 02/22/18 20:03 Last Admin: 12/27/17 21:56 Dose: 1 mg Magnesium Hydroxide (Milk Of Magnesia) 30 ml GT DAILY PRN PRN Reason: IF NO BM IN TWO DAYS Stop: 02/22/18 19:48 Methylprednisolone Sodium Succinate (Solu-Medrol) 40 mg IVP Q8HR [facility] Stop: 02/22/18 20:59 Last Admin: 12/28/17 05:07 Dose: 40 mg Pantoprazole Sodium (Protonix) 40 mg IVP DAILY [facility] Stop: 02/23/18 08:59 Last Admin: 12/28/17 09:52 Dose: 40 mg Quetiapine Fumarate (Seroquel) 25 mg GT Q8H PRN; Protocol PRN Reason: Psychosis Stop: 02/22/18 19:48 Last Admin: 12/28/17 00:52 Dose: 25 mg Quetiapine Fumarate (Seroquel) 12.5 mg GT BID [facility] PRN Reason: Protocol Stop: 02/23/18 08:59 Last Admin: 12/28/17 09:51 Dose: 12.5 mg Senna (Senna) 8.6 mg GT BID [facility] Stop: 02/23/18 08:59 Last Admin: 12/28/17 09:50 Dose: 8.6 mg Sodium Phosphate (Fleet Enema) 135 ml RC DAILY PRN PRN Reason: IF MOM OR DULCOLAX INEFFECTIVE Stop: 02/22/18 19:48 Temazepam (Restoril) 15 mg PO HS PRN; Protocol PRN Reason: Insomnia Stop: 02/23/18 17:30 Last Admin: 12/28/17 00:53 Dose: 15 mg General: Alert HEENT: no Atraumatic Neck: Supple Cardiovascular: Regular rate Abdomen: Bowel sounds, Soft, no Tender, no Hepatomegaly, no Rebound, no Mass, no Guarding Skin: no Rash Assessment/Plan - Assessment Assessment: 77 YO MALE WITH POSSIBLE UGI BLEED, although low probability given green NG output HGB IS NORMAL X 2 NO OVERT GI BLEED GI asked about removing G tube. This can be done if he passes a swallow evaluation. In meantime, recommend G tube feeding. 1.cont tube feeds for now 2.f/u swallow eval prior to G tube removal 3.PROTONIX 4.FOLLOW H/H
--- NOTE | 2017-12-28 15:17 | Infectious Disease Prog Note ---
Infectious Disease Subjective - Review of Systems Service Date: 12/28/17 Subjective: There is no new change, no fever. Infectious Disease Objective - Results Result Diagrams: 12/29/17 05:38 12/29/17 05:38 Recent Labs: Laboratory Last Values WBC 12.5 Th/cmm (4.8-10.8) H 12/28/17 06:33 RBC 4.81 Mil/cmm (3.80-5.80) 12/28/17 06:33 Hgb 13.9 gm/dL (12-16) 12/28/17 06:33 Hct 42.8 % (41.0-60) 12/28/17 06:33 MCV 88.9 fl (80-99) 12/28/17 06:33 MCH 29.0 pg (27.0-31.0) 12/28/17 06:33 MCHC Differential 32.6 pg (28.0-36.0) 12/28/17 06:33 RDW 13.5 % (11.5-20.0) 12/28/17 06:33 Plt Count 370 Th/cmm (150-400) 12/28/17 06:33 MPV 9.6 fl 12/28/17 06:33 Neutrophils % 94.2 % (40.0-80.0) H 12/26/17 08:00 Band Neutrophils % 1 % (0-10) 12/27/17 05:33 Lymphocytes % 3.2 % (20.0-50.0) L 12/26/17 08:00 Monocytes % 2.1 % (2.0-10.0) 12/26/17 08:00 Eosinophils % 0.2 % (0.0-5.0) 12/26/17 08:00 Basophils % 0.3 % (0.0-2.0) 12/26/17 08:00 Neutrophils (Manual) 91 % (40-80) H 12/28/17 06:33 Lymphocytes 4 % (20-50) L 12/28/17 06:33 Monocytes 5 % (2-10) 12/28/17 06:33 Eosinophils 1 % (0-5) 12/24/17 07:36 Platelet Estimate ADEQUATE (NORMAL) 12/28/17 06:33 Platelet Morphology GIANT PLATELETS SEEN (NORMAL) 12/25/17 15:48 Specimen Source ARTERIAL 12/23/17 22:58 Sample Site Left Radial 12/23/17 22:58 pH 7.57 (7.35-7.45) H* 12/23/17 22:58 pCO2 35.0 mmHg (35.0-45.0) 12/23/17 22:58 pO2 47.0 mmHg (80.0-100.0) L* 12/23/17 22:58 HCO3 32.2 mEq/L (20.0-26.0) H 12/23/17 22:58 Base Excess 9.6 mEq/L (-3.0-3.0) H 12/23/17 22:58 O2 Saturation 89.0 % (92.0-100.0) L 12/23/17 22:58 Ciro Test Positive 12/23/17 22:58 Vent Rate N/A 12/23/17 22:58 Inspired O2 21 12/23/17 22:58 Tidal Volume N/A 12/23/17 22:58 PEEP N/A 12/23/17 22:58 Pressure (ins/psv/peep) N/A 12/23/17 22:58 Critical Value MMIRANDA,SHAKE OUT WORKER 12/23/17 22:58 Sodium 145 mEq/L (136-145) 12/28/17 06:33 Potassium 3.4 mEq/L (3.5-5.1) L 12/28/17 06:33 Chloride 109 mEq/L (98-107) H 12/28/17 06:33 Carbon Dioxide 27.6 mEq/L (21.0-31.0) 12/28/17 06:33 Anion Gap 11.8 (7.0-16.0) 12/28/17 06:33 BUN 61 mg/dL (7-25) H 12/28/17 06:33 Creatinine 1.5 mg/dL (0.7-1.3) H 12/28/17 06:33 Est GFR ( Amer) TNP 12/28/17 06:33 Est GFR (Non-Af Amer) TNP 12/28/17 06:33 BUN/Creatinine Ratio 40.7 12/28/17 06:33 Glucose 176 mg/dL (70-105) H 12/28/17 06:33 Calcium 9.8 mg/dL (8.6-10.3) 12/28/17 06:33 Total Bilirubin 1.5 mg/dL (0.3-1.0) H 12/28/17 06:33 Direct Bilirubin 0.54 mg/dL (0.0-0.2) H 12/27/17 05:33 AST 109 U/L (13-39) H 12/28/17 06:33 ALT 117 U/L (7-52) H 12/28/17 06:33 Alkaline Phosphatase 89 U/L (34-104) 12/28/17 06:33 Ammonia 55 umol/L (16-53) H 12/27/17 05:33 B-Natriuretic Peptide 146.0 pg/mL (5.0-100.0) H 12/24/17 07:36 Total Protein 6.6 gm/dL (6.0-8.3) 12/28/17 06:33 Albumin 3.5 gm/dL (4.2-5.5) L 12/28/17 06:33 Globulin 3.1 gm/dL 12/28/17 06:33 Albumin/Globulin Ratio 1.1 (1.0-1.8) 12/28/17 06:33 Stool Occult Blood NEGATIVE (NEGATIVE) 12/25/17 16:42 Vancomycin Trough 25.1 ug/mL (10-20) H 12/26/17 08:00 - Physical Exam Vitals and I&O: Vital Signs Temp 97.2 F 12/28/17 12:00 Pulse 77 12/28/17 14:31 Resp 20 12/28/17 14:31 BP 160/85 12/28/17 13:14 Pulse Ox 99 12/28/17 14:31 Intake & Output 12/27/17 12/28/17 12/28/17 18:59 06:59 18:59 Intake Total 1100 1228.75 50 Balance 1100 1228.75 50 Weight (lbs) 81.012 kg Intake: Intake, IV Amount 1100 1008.75 50 D5-0.45NS 1,000 ml @ 75 1000 958.75 mls/hr IV .[id number] [facility] Rx #:[id number] Piperacillin Sodium/ 100 50 50 Tazobact 3.375 gm In Sodium Chloride 0.9% 50 ml @ 100 mls/hr IV Q8H [facility] Rx#:[id number] Tube Feeding 220 Other: # Voids 3 Active Medications: Current Medications Albuterol/Ipratropium (Duoneb Neb) 3 ml HHN Q2H PRN PRN Reason: Wheezing Stop: 02/21/18 23:39 Albuterol/Ipratropium (Duoneb Neb) 3 ml HHN Q4HRT [facility] Stop: 02/22/18 22:59 Last Admin: 12/28/17 14:31 Dose: 3 ml Amlodipine Besylate (Norvasc) 10 mg GT DAILY [facility] Stop: 02/23/18 08:59 Last Admin: 12/28/17 09:50 Dose: 10 mg Bisacodyl (Dulcolax 10 Mg Supp) 10 mg RC DAILY PRN PRN Reason: IF MOM INEFFECTIVE Stop: 02/22/18 19:48 Hydralazine HCl (Apresoline) 50 mg GT Q8HR [facility] Stop: 02/22/18 20:59 Last Admin: 12/28/17 13:14 Dose: 50 mg Hydrochlorothiazide (Hctz) 50 mg GT DAILY [facility] Stop: 02/23/18 08:59 Last Admin: 12/28/17 09:52 Dose: 50 mg Piperacillin Sod/Tazobactam (Sod 3.375 gm/ Sodium Chloride) 50 mls @ 100 mls/ hr IV Q8H [facility] Stop: 02/22/18 00:59 Last Infusion: 12/28/17 13:14 Dose: Infused Dextrose/Sodium Chloride (D5-0.45ns) 1,000 mls @ 75 mls/hr IV .[id number] [facility] Stop: 02/24/18 19:49 Last Admin: 12/27/17 23:07 Dose: 75 mls/hr Levothyroxine Sodium 0.025 mg/ (Levothyroxine Sodium 0.1 mg) 0.125 mg GT DAILY [facility] Stop: 02/23/18 10:44 Last Admin: 12/28/17 09:51 Dose: 0.125 mg Lisinopril (Zestril) 40 mg GT DAILY [facility] Stop: 02/23/18 08:59 Last Admin: 12/28/17 09:52 Dose: 40 mg Lorazepam (Ativan) 1 mg IVP Q4HR PRN; Protocol PRN Reason: for restlessnessand agitation Stop: 02/22/18 20:03 Last Admin: 12/27/17 21:56 Dose: 1 mg Magnesium Hydroxide (Milk Of Magnesia) 30 ml GT DAILY PRN PRN Reason: IF NO BM IN TWO DAYS Stop: 02/22/18 19:48 Methylprednisolone Sodium Succinate (Solu-Medrol) 40 mg IVP Q8HR [facility] Stop: 02/22/18 20:59 Last Admin: 12/28/17 13:14 Dose: 40 mg Pantoprazole Sodium (Protonix) 40 mg IVP DAILY [facility] Stop: 02/23/18 08:59 Last Admin: 12/28/17 09:52 Dose: 40 mg Quetiapine Fumarate (Seroquel) 25 mg GT Q8H PRN; Protocol PRN Reason: Psychosis Stop: 02/22/18 19:48 Last Admin: 12/28/17 00:52 Dose: 25 mg Quetiapine Fumarate (Seroquel) 12.5 mg GT BID [facility] PRN Reason: Protocol Stop: 02/23/18 08:59 Last Admin: 12/28/17 09:51 Dose: 12.5 mg Senna (Senna) 8.6 mg GT BID [facility] Stop: 02/23/18 08:59 Last Admin: 12/28/17 09:50 Dose: 8.6 mg Sodium Phosphate (Fleet Enema) 135 ml RC DAILY PRN PRN Reason: IF MOM OR DULCOLAX INEFFECTIVE Stop: 02/22/18 19:48 Temazepam (Restoril) 15 mg PO HS PRN; Protocol PRN Reason: Insomnia Stop: 02/23/18 17:30 Last Admin: 12/28/17 00:53 Dose: 15 mg General: no acute distress, well developed, well nourished HEENT: atraumatic, normocephalic, PERRLA, EOMI Neck: supple, no thyromegaly Cardiovascular: S1S2, regular Lungs: clear to auscultation bilaterally, clear to percussion Abdomen: soft, no tender Extremities: no cyanosis, no clubbing, no edema Neurological: awake, other (confused.) Infectious Disease Assmt/Plan - Assessment Assessment: 1. Choledocholithiasis, choolecystitis. 2. Leukocytosis. - Plan Plan: Continue same meds.
[2017-12-28] MEDS: D5-0.45NS 1,000 ML IV SCH (15:22)
--- NOTE | 2017-12-28 15:34 | Infectious Disease Prog Note ---
Infectious Disease Subjective - Review of Systems Service Date: 12/28/17 Events since last encounter: No events. Subjective: There is no new change, no fever. Infectious Disease Objective - Results Result Diagrams: 12/28/17 06:33 12/28/17 06:33 Recent Labs: Laboratory Last Values WBC 12.5 Th/cmm (4.8-10.8) H 12/28/17 06:33 RBC 4.81 Mil/cmm (3.80-5.80) 12/28/17 06:33 Hgb 13.9 gm/dL (12-16) 12/28/17 06:33 Hct 42.8 % (41.0-60) 12/28/17 06:33 MCV 88.9 fl (80-99) 12/28/17 06:33 MCH 29.0 pg (27.0-31.0) 12/28/17 06:33 MCHC Differential 32.6 pg (28.0-36.0) 12/28/17 06:33 RDW 13.5 % (11.5-20.0) 12/28/17 06:33 Plt Count 370 Th/cmm (150-400) 12/28/17 06:33 MPV 9.6 fl 12/28/17 06:33 Neutrophils % 94.2 % (40.0-80.0) H 12/26/17 08:00 Band Neutrophils % 1 % (0-10) 12/27/17 05:33 Lymphocytes % 3.2 % (20.0-50.0) L 12/26/17 08:00 Monocytes % 2.1 % (2.0-10.0) 12/26/17 08:00 Eosinophils % 0.2 % (0.0-5.0) 12/26/17 08:00 Basophils % 0.3 % (0.0-2.0) 12/26/17 08:00 Neutrophils (Manual) 91 % (40-80) H 12/28/17 06:33 Lymphocytes 4 % (20-50) L 12/28/17 06:33 Monocytes 5 % (2-10) 12/28/17 06:33 Eosinophils 1 % (0-5) 12/24/17 07:36 Platelet Estimate ADEQUATE (NORMAL) 12/28/17 06:33 Platelet Morphology GIANT PLATELETS SEEN (NORMAL) 12/25/17 15:48 Specimen Source ARTERIAL 12/23/17 22:58 Sample Site Left Radial 12/23/17 22:58 pH 7.57 (7.35-7.45) H* 12/23/17 22:58 pCO2 35.0 mmHg (35.0-45.0) 12/23/17 22:58 pO2 47.0 mmHg (80.0-100.0) L* 12/23/17 22:58 HCO3 32.2 mEq/L (20.0-26.0) H 12/23/17 22:58 Base Excess 9.6 mEq/L (-3.0-3.0) H 12/23/17 22:58 O2 Saturation 89.0 % (92.0-100.0) L 12/23/17 22:58 Ciro Test Positive 12/23/17 22:58 Vent Rate N/A 12/23/17 22:58 Inspired O2 21 12/23/17 22:58 Tidal Volume N/A 12/23/17 22:58 PEEP N/A 12/23/17 22:58 Pressure (ins/psv/peep) N/A 12/23/17 22:58 Critical Value MMIRANDA,BREWERY TECHNICIAN 12/23/17 22:58 Sodium 145 mEq/L (136-145) 12/28/17 06:33 Potassium 3.4 mEq/L (3.5-5.1) L 12/28/17 06:33 Chloride 109 mEq/L (98-107) H 12/28/17 06:33 Carbon Dioxide 27.6 mEq/L (21.0-31.0) 12/28/17 06:33 Anion Gap 11.8 (7.0-16.0) 12/28/17 06:33 BUN 61 mg/dL (7-25) H 12/28/17 06:33 Creatinine 1.5 mg/dL (0.7-1.3) H 12/28/17 06:33 Est GFR ( Amer) TNP 12/28/17 06:33 Est GFR (Non-Af Amer) TNP 12/28/17 06:33 BUN/Creatinine Ratio 40.7 12/28/17 06:33 Glucose 176 mg/dL (70-105) H 12/28/17 06:33 Calcium 9.8 mg/dL (8.6-10.3) 12/28/17 06:33 Total Bilirubin 1.5 mg/dL (0.3-1.0) H 12/28/17 06:33 Direct Bilirubin 0.54 mg/dL (0.0-0.2) H 12/27/17 05:33 AST 109 U/L (13-39) H 12/28/17 06:33 ALT 117 U/L (7-52) H 12/28/17 06:33 Alkaline Phosphatase 89 U/L (34-104) 12/28/17 06:33 Ammonia 55 umol/L (16-53) H 12/27/17 05:33 B-Natriuretic Peptide 146.0 pg/mL (5.0-100.0) H 12/24/17 07:36 Total Protein 6.6 gm/dL (6.0-8.3) 12/28/17 06:33 Albumin 3.5 gm/dL (4.2-5.5) L 12/28/17 06:33 Globulin 3.1 gm/dL 12/28/17 06:33 Albumin/Globulin Ratio 1.1 (1.0-1.8) 12/28/17 06:33 Stool Occult Blood NEGATIVE (NEGATIVE) 12/25/17 16:42 Vancomycin Trough 25.1 ug/mL (10-20) H 12/26/17 08:00 - Physical Exam Vitals and I&O: Vital Signs Temp 97.2 F 12/28/17 12:00 Pulse 77 12/28/17 14:31 Resp 20 12/28/17 14:31 BP 160/85 12/28/17 13:14 Pulse Ox 99 12/28/17 14:31 Intake & Output 12/27/17 12/28/17 12/28/17 18:59 06:59 18:59 Intake Total 1100 1228.75 1050 Balance 1100 1228.75 1050 Weight (lbs) 81.012 kg Intake: Intake, IV Amount 1100 1008.75 1050 D5-0.45NS 1,000 ml @ 75 1000 958.75 1000 mls/hr IV .[id number] [facility] Rx #:[id number] Piperacillin Sodium/ 100 50 50 Tazobact 3.375 gm In Sodium Chloride 0.9% 50 ml @ 100 mls/hr IV Q8H [facility] Rx#:[id number] Tube Feeding 220 Other: # Voids 3 Active Medications: Current Medications Albuterol/Ipratropium (Duoneb Neb) 3 ml HHN Q2H PRN PRN Reason: Wheezing Stop: 02/21/18 23:39 Albuterol/Ipratropium (Duoneb Neb) 3 ml HHN Q4HRT [facility] Stop: 02/22/18 22:59 Last Admin: 12/28/17 14:31 Dose: 3 ml Amlodipine Besylate (Norvasc) 10 mg GT DAILY [facility] Stop: 02/23/18 08:59 Last Admin: 12/28/17 09:50 Dose: 10 mg Bisacodyl (Dulcolax 10 Mg Supp) 10 mg RC DAILY PRN PRN Reason: IF MOM INEFFECTIVE Stop: 02/22/18 19:48 Hydralazine HCl (Apresoline) 50 mg GT Q8HR [facility] Stop: 02/22/18 20:59 Last Admin: 12/28/17 13:14 Dose: 50 mg Hydrochlorothiazide (Hctz) 50 mg GT DAILY [facility] Stop: 02/23/18 08:59 Last Admin: 12/28/17 09:52 Dose: 50 mg Piperacillin Sod/Tazobactam (Sod 3.375 gm/ Sodium Chloride) 50 mls @ 100 mls/ hr IV Q8H [facility] Stop: 02/22/18 00:59 Last Infusion: 12/28/17 13:14 Dose: Infused Dextrose/Sodium Chloride (D5-0.45ns) 1,000 mls @ 75 mls/hr IV .[id number] [facility] Stop: 02/24/18 19:49 Last Admin: 12/28/17 15:22 Dose: 75 mls/hr Levothyroxine Sodium 0.025 mg/ (Levothyroxine Sodium 0.1 mg) 0.125 mg GT DAILY [facility] Stop: 02/23/18 10:44 Last Admin: 12/28/17 09:51 Dose: 0.125 mg Lisinopril (Zestril) 40 mg GT DAILY [facility] Stop: 02/23/18 08:59 Last Admin: 12/28/17 09:52 Dose: 40 mg Lorazepam (Ativan) 1 mg IVP Q4HR PRN; Protocol PRN Reason: for restlessnessand agitation Stop: 02/22/18 20:03 Last Admin: 12/27/17 21:56 Dose: 1 mg Magnesium Hydroxide (Milk Of Magnesia) 30 ml GT DAILY PRN PRN Reason: IF NO BM IN TWO DAYS Stop: 02/22/18 19:48 Methylprednisolone Sodium Succinate (Solu-Medrol) 40 mg IVP Q8HR [facility] Stop: 02/22/18 20:59 Last Admin: 12/28/17 13:14 Dose: 40 mg Pantoprazole Sodium (Protonix) 40 mg IVP DAILY [facility] Stop: 02/23/18 08:59 Last Admin: 12/28/17 09:52 Dose: 40 mg Quetiapine Fumarate (Seroquel) 25 mg GT Q8H PRN; Protocol PRN Reason: Psychosis Stop: 02/22/18 19:48 Last Admin: 12/28/17 00:52 Dose: 25 mg Quetiapine Fumarate (Seroquel) 12.5 mg GT BID [facility] PRN Reason: Protocol Stop: 02/23/18 08:59 Last Admin: 12/28/17 09:51 Dose: 12.5 mg Senna (Senna) 8.6 mg GT BID [facility] Stop: 02/23/18 08:59 Last Admin: 12/28/17 09:50 Dose: 8.6 mg Sodium Phosphate (Fleet Enema) 135 ml RC DAILY PRN PRN Reason: IF MOM OR DULCOLAX INEFFECTIVE Stop: 02/22/18 19:48 Temazepam (Restoril) 15 mg PO HS PRN; Protocol PRN Reason: Insomnia Stop: 02/23/18 17:30 Last Admin: 12/28/17 00:53 Dose: 15 mg General: no acute distress, well developed, well nourished HEENT: atraumatic, normocephalic, PERRLA, EOMI Neck: supple, no thyromegaly Cardiovascular: S1S2, regular Lungs: clear to auscultation bilaterally, clear to percussion Abdomen: soft, no tender, no distended, no rebound Extremities: no cyanosis, no clubbing, no edema Neurological: awake, other (confused) Skin: intact Infectious Disease Assmt/Plan - Assessment Assessment: 1. Choledocholithiasis, choolecystitis. 2. Leukocytosis improving. 3. Chronic obstructive pulmonary disease exacerbation. 4. Respiratory insufficiency with hypoxia. 5. History of cerebrovascular accident. 6. Dementia. 7. Hypertension. 8. Coronary artery disease. - Plan Plan: Continue Zosyn.
--- NOTE | 2017-12-29 02:42 | Progress Notes ---
DATE: 12/28/2017 I am covering for Dr. Bean. Case was discussed with staff of the patient and reviewed records. The patient continues to have some irritability, but he is following directions better. He is compliant with the medication with Seroquel through the G-tube with no side effects. He continues to be unpredictable, impulsive, and confused. No side effects from the medication, no sedation, no nausea, no extrapyramidal symptoms. We will continue to follow the patient. Thank you very much for allowing me to participate in the care of this most interesting gentleman. JOB# [id number]
[2017-12-29] MEDS: Albuterol/Ipratropium Neb 3 ML AERS HHN SCH ×5 (03:52→19:22)
[2017-12-29] MEDS: methylPREDNISolone SS 40 mg Vial IVP SCH ×2 (05:11→13:47)
[2017-12-29] MEDS: D5-0.45NS 1,000 ML IV SCH (05:19)
[2017-12-29 06:07] LABS: HEMATOCRIT 39.4 % (41.0-60); HEMOGLOBIN 12.9 gm/dL (12-16); LYMPHOCYTE ABSOLUTE 0.6 Th/cmm (1.5-3.0); MEAN CORPUSCULAR HEMOGLOBIN 29.4 pg (27.0-31.0); MEAN CORPUSCULAR HGB CONC 32.7 pg (28.0-36.0); MEAN PLATELET VOLUME 9.6 fl; MONOCYTE ABSOLUTE 0.4 Th/cmm (0.3-1.0); NEUTROPHILE ABSOLUTE 11.4 Th/cmm (1.8-8.0); PLATELET COUNT 390 Th/cmm (150-400); RED BLOOD COUNT 4.37 Mil/cmm (3.80-5.80); RED CELL DISTRIBUTION WIDTH 13.4 % (11.5-20.0)
[2017-12-29 06:12] LABS: % NEUTROPHILS 92.2 % (40.0-80.0); WHITE BLOOD COUNT 12.4 Th/cmm (4.8-10.8)
[2017-12-29 06:13] LABS: % BASOPHILS 0.1 % (0.0-2.0); % LYMPHOCYTES 4.8 % (20.0-50.0); % MONOCYTES 2.9 % (2.0-10.0); ALB/GLOB RATIO 1.1 (1.0-1.8); ALBUMIN 3.1 gm/dL (4.2-5.5); ALKALINE PHOSPHATASE 78 U/L (34-104); ANION GAP 9.5 (7.0-16.0); BILIRUBIN,TOTAL 1.4 mg/dL (0.3-1.0); BUN - UREA NITROGEN 47 mg/dL (7-25); CALCIUM SERUM 9.4 mg/dL (8.6-10.3); CARBON DIOXIDE 28.2 mEq/L (21.0-31.0); CHLORIDE 106 mEq/L (98-107); CREATININE - SERUM 1.2 mg/dL (0.7-1.3); GLUCOSE 179 mg/dL (70-105); POTASSIUM SERUM 3.7 mEq/L (3.5-5.1); SGOT 131 U/L (13-39); SGPT/ALT 166 U/L (7-52); SODIUM SERUM 140 mEq/L (136-145); TOTAL PROTEIN,SERUM 5.9 gm/dL (6.0-8.3)
--- NOTE | 2017-12-29 08:09 | Diagnostic Imaging Report ---
Portable chest x-ray HISTORY: Shortness of breath The heart is enlarged. No focal pulmonary processes. No hilar or mediastinal abnormalities. IMPRESSION: 1. Cardiomegaly 2. No focal pulmonary processes
--- NOTE | 2017-12-29 09:11 | General Progress Note ---
Subjective - Review of Systems Service Date: 12/29/17 Events since last encounter: consult dictated to have US today to determine CBD dilatation/stone prior to ERCP Objective - Results Result Diagrams: 12/29/17 05:38 12/29/17 05:38 Recent Labs: Laboratory Last Values WBC 12.4 Th/cmm (4.8-10.8) H 12/29/17 05:38 RBC 4.37 Mil/cmm (3.80-5.80) 12/29/17 05:38 Hgb 12.9 gm/dL (12-16) 12/29/17 05:38 Hct 39.4 % (41.0-60) L 12/29/17 05:38 MCV 90.0 fl (80-99) 12/29/17 05:38 MCH 29.4 pg (27.0-31.0) 12/29/17 05:38 MCHC Differential 32.7 pg (28.0-36.0) 12/29/17 05:38 RDW 13.4 % (11.5-20.0) 12/29/17 05:38 Plt Count 390 Th/cmm (150-400) 12/29/17 05:38 MPV 9.6 fl 12/29/17 05:38 Neutrophils % 92.2 % (40.0-80.0) H 12/29/17 05:38 Band Neutrophils % 1 % (0-10) 12/27/17 05:33 Lymphocytes % 4.8 % (20.0-50.0) L 12/29/17 05:38 Monocytes % 2.9 % (2.0-10.0) 12/29/17 05:38 Eosinophils % 0.0 % (0.0-5.0) 12/29/17 05:38 Basophils % 0.1 % (0.0-2.0) 12/29/17 05:38 Neutrophils (Manual) 91 % (40-80) H 12/28/17 06:33 Lymphocytes 4 % (20-50) L 12/28/17 06:33 Monocytes 5 % (2-10) 12/28/17 06:33 Eosinophils 1 % (0-5) 12/24/17 07:36 Platelet Estimate ADEQUATE (NORMAL) 12/28/17 06:33 Platelet Morphology GIANT PLATELETS SEEN (NORMAL) 12/25/17 15:48 Specimen Source ARTERIAL 12/23/17 22:58 Sample Site Left Radial 12/23/17 22:58 pH 7.57 (7.35-7.45) H* 12/23/17 22:58 pCO2 35.0 mmHg (35.0-45.0) 12/23/17 22:58 pO2 47.0 mmHg (80.0-100.0) L* 12/23/17 22:58 HCO3 32.2 mEq/L (20.0-26.0) H 12/23/17 22:58 Base Excess 9.6 mEq/L (-3.0-3.0) H 12/23/17 22:58 O2 Saturation 89.0 % (92.0-100.0) L 12/23/17 22:58 Ciro Test Positive 12/23/17 22:58 Vent Rate N/A 12/23/17 22:58 Inspired O2 21 12/23/17 22:58 Tidal Volume N/A 12/23/17 22:58 PEEP N/A 12/23/17 22:58 Pressure (ins/psv/peep) N/A 12/23/17 22:58 Critical Value MMIRANDA,CAGE UNLOADER 12/23/17 22:58 Sodium 140 mEq/L (136-145) 12/29/17 05:38 Potassium 3.7 mEq/L (3.5-5.1) 12/29/17 05:38 Chloride 106 mEq/L (98-107) 12/29/17 05:38 Carbon Dioxide 28.2 mEq/L (21.0-31.0) 12/29/17 05:38 Anion Gap 9.5 (7.0-16.0) 12/29/17 05:38 BUN 47 mg/dL (7-25) H 12/29/17 05:38 Creatinine 1.2 mg/dL (0.7-1.3) 12/29/17 05:38 Est GFR ( Amer) TNP 12/29/17 05:38 Est GFR (Non-Af Amer) TNP 12/29/17 05:38 BUN/Creatinine Ratio 39.2 12/29/17 05:38 Glucose 179 mg/dL (70-105) H 12/29/17 05:38 Calcium 9.4 mg/dL (8.6-10.3) 12/29/17 05:38 Total Bilirubin 1.4 mg/dL (0.3-1.0) H 12/29/17 05:38 Direct Bilirubin 0.72 mg/dL (0.0-0.2) H 12/28/17 06:33 AST 131 U/L (13-39) H 12/29/17 05:38 ALT 166 U/L (7-52) H 12/29/17 05:38 Alkaline Phosphatase 78 U/L (34-104) 12/29/17 05:38 Ammonia 55 umol/L (16-53) H 12/27/17 05:33 B-Natriuretic Peptide 146.0 pg/mL (5.0-100.0) H 12/24/17 07:36 Total Protein 5.9 gm/dL (6.0-8.3) L 12/29/17 05:38 Albumin 3.1 gm/dL (4.2-5.5) L 12/29/17 05:38 Globulin 2.8 gm/dL 12/29/17 05:38 Albumin/Globulin Ratio 1.1 (1.0-1.8) 12/29/17 05:38 Stool Occult Blood NEGATIVE (NEGATIVE) 12/25/17 16:42 Vancomycin Trough 25.1 ug/mL (10-20) H 12/26/17 08:00 - Physical Exam Vitals and I&O: Vital Signs Temp 97.4 F 12/29/17 04:00 Pulse 58 12/29/17 08:28 Resp 20 12/29/17 07:30 BP 120/51 12/29/17 08:28 Pulse Ox 98 12/29/17 07:30 Intake & Output 12/28/17 12/29/17 12/29/17 18:59 06:59 18:59 Intake Total 1230 1580 Balance 1230 1580 Weight (lbs) 81.465 kg 81.193 kg Intake: Intake, IV Amount 1050 1100 D5-0.45NS 1,000 ml @ 75 1000 1000 mls/hr IV .[id number] [facility] Rx #:[id number] Piperacillin Sodium/ 50 100 Tazobact 3.375 gm In Sodium Chloride 0.9% 50 ml @ 100 mls/hr IV Q8H [facility] Rx#:[id number] Oral 0 Tube Feeding 180 480 Other: # Voids 3 3 # Bowel Movements 0 Active Medications: Current Medications Albuterol/Ipratropium (Duoneb Neb) 3 ml HHN Q2H PRN PRN Reason: Wheezing Stop: 02/21/18 23:39 Albuterol/Ipratropium (Duoneb Neb) 3 ml HHN Q4HRT [facility] Stop: 02/22/18 22:59 Last Admin: 12/29/17 07:28 Dose: 3 ml Amlodipine Besylate (Norvasc) 10 mg GT DAILY [facility] Stop: 02/23/18 08:59 Last Admin: 12/29/17 08:28 Dose: Not Given Bisacodyl (Dulcolax 10 Mg Supp) 10 mg RC DAILY PRN PRN Reason: IF MOM INEFFECTIVE Stop: 02/22/18 19:48 Hydralazine HCl (Apresoline) 50 mg GT Q8HR [facility] Stop: 02/22/18 20:59 Last Admin: 12/29/17 05:10 Dose: 50 mg Hydrochlorothiazide (Hctz) 50 mg GT DAILY [facility] Stop: 02/23/18 08:59 Last Admin: 12/29/17 08:28 Dose: Not Given Piperacillin Sod/Tazobactam (Sod 3.375 gm/ Sodium Chloride) 50 mls @ 100 mls/ hr IV Q8H [facility] Stop: 02/22/18 00:59 Last Admin: 12/29/17 08:33 Dose: 100 mls/hr Dextrose/Sodium Chloride (D5-0.45ns) 1,000 mls @ 75 mls/hr IV .[id number] [facility] Stop: 02/24/18 19:49 Last Admin: 12/29/17 05:19 Dose: 75 mls/hr Levothyroxine Sodium 0.025 mg/ (Levothyroxine Sodium 0.1 mg) 0.125 mg GT DAILY [facility] Stop: 02/23/18 10:44 Last Admin: 12/29/17 08:28 Dose: Not Given Lisinopril (Zestril) 40 mg GT DAILY [facility] Stop: 02/23/18 08:59 Last Admin: 12/29/17 08:28 Dose: Not Given Lorazepam (Ativan) 1 mg IVP Q4HR PRN; Protocol PRN Reason: for restlessnessand agitation Stop: 02/22/18 20:03 Last Admin: 12/29/17 08:59 Dose: 1 mg Magnesium Hydroxide (Milk Of Magnesia) 30 ml GT DAILY PRN PRN Reason: IF NO BM IN TWO DAYS Stop: 02/22/18 19:48 Methylprednisolone Sodium Succinate (Solu-Medrol) 40 mg IVP Q8HR [facility] Stop: 02/22/18 20:59 Last Admin: 12/29/17 05:11 Dose: 40 mg Pantoprazole Sodium (Protonix) 40 mg IVP DAILY [facility] Stop: 02/23/18 08:59 Last Admin: 12/29/17 08:33 Dose: 40 mg Quetiapine Fumarate (Seroquel) 25 mg GT Q8H PRN; Protocol PRN Reason: Psychosis Stop: 02/22/18 19:48 Last Admin: 12/29/17 00:06 Dose: 25 mg Quetiapine Fumarate (Seroquel) 12.5 mg GT TID [facility] PRN Reason: Protocol Stop: 02/27/18 08:59 Last Admin: 12/29/17 08:29 Dose: Not Given Senna (Senna) 8.6 mg GT BID [facility] Stop: 02/23/18 08:59 Last Admin: 12/29/17 08:30 Dose: Not Given Sodium Phosphate (Fleet Enema) 135 ml RC DAILY PRN PRN Reason: IF MOM OR DULCOLAX INEFFECTIVE Stop: 02/22/18 19:48 Temazepam (Restoril) 15 mg PO HS PRN; Protocol PRN Reason: Insomnia Stop: 02/23/18 17:30 Last Admin: 12/28/17 23:12 Dose: 15 mg General: Alert HEENT: no Atraumatic Neck: Supple Cardiovascular: Regular rate Abdomen: Bowel sounds, Soft, no Tender, no Hepatomegaly, no Rebound, no Mass, no Guarding Skin: no Rash
--- NOTE | 2017-12-29 09:39 | GI Progress Note ---
Subjective - Review of Systems Service Date: 12/29/17 Subjective: Undergoing US Objective - Results Result Diagrams: 12/29/17 05:38 12/29/17 05:38 Recent Labs: Laboratory Last Values WBC 12.4 Th/cmm (4.8-10.8) H 12/29/17 05:38 RBC 4.37 Mil/cmm (3.80-5.80) 12/29/17 05:38 Hgb 12.9 gm/dL (12-16) 12/29/17 05:38 Hct 39.4 % (41.0-60) L 12/29/17 05:38 MCV 90.0 fl (80-99) 12/29/17 05:38 MCH 29.4 pg (27.0-31.0) 12/29/17 05:38 MCHC Differential 32.7 pg (28.0-36.0) 12/29/17 05:38 RDW 13.4 % (11.5-20.0) 12/29/17 05:38 Plt Count 390 Th/cmm (150-400) 12/29/17 05:38 MPV 9.6 fl 12/29/17 05:38 Neutrophils % 92.2 % (40.0-80.0) H 12/29/17 05:38 Band Neutrophils % 1 % (0-10) 12/27/17 05:33 Lymphocytes % 4.8 % (20.0-50.0) L 12/29/17 05:38 Monocytes % 2.9 % (2.0-10.0) 12/29/17 05:38 Eosinophils % 0.0 % (0.0-5.0) 12/29/17 05:38 Basophils % 0.1 % (0.0-2.0) 12/29/17 05:38 Neutrophils (Manual) 91 % (40-80) H 12/28/17 06:33 Lymphocytes 4 % (20-50) L 12/28/17 06:33 Monocytes 5 % (2-10) 12/28/17 06:33 Eosinophils 1 % (0-5) 12/24/17 07:36 Platelet Estimate ADEQUATE (NORMAL) 12/28/17 06:33 Platelet Morphology GIANT PLATELETS SEEN (NORMAL) 12/25/17 15:48 Specimen Source ARTERIAL 12/23/17 22:58 Sample Site Left Radial 12/23/17 22:58 pH 7.57 (7.35-7.45) H* 12/23/17 22:58 pCO2 35.0 mmHg (35.0-45.0) 12/23/17 22:58 pO2 47.0 mmHg (80.0-100.0) L* 12/23/17 22:58 HCO3 32.2 mEq/L (20.0-26.0) H 12/23/17 22:58 Base Excess 9.6 mEq/L (-3.0-3.0) H 12/23/17 22:58 O2 Saturation 89.0 % (92.0-100.0) L 12/23/17 22:58 Ciro Test Positive 12/23/17 22:58 Vent Rate N/A 12/23/17 22:58 Inspired O2 21 12/23/17 22:58 Tidal Volume N/A 12/23/17 22:58 PEEP N/A 12/23/17 22:58 Pressure (ins/psv/peep) N/A 12/23/17 22:58 Critical Value MMIRANDA,ROAD ENGINEER FREIGHT 12/23/17 22:58 Sodium 140 mEq/L (136-145) 12/29/17 05:38 Potassium 3.7 mEq/L (3.5-5.1) 12/29/17 05:38 Chloride 106 mEq/L (98-107) 12/29/17 05:38 Carbon Dioxide 28.2 mEq/L (21.0-31.0) 12/29/17 05:38 Anion Gap 9.5 (7.0-16.0) 12/29/17 05:38 BUN 47 mg/dL (7-25) H 12/29/17 05:38 Creatinine 1.2 mg/dL (0.7-1.3) 12/29/17 05:38 Est GFR ( Amer) TNP 12/29/17 05:38 Est GFR (Non-Af Amer) TNP 12/29/17 05:38 BUN/Creatinine Ratio 39.2 12/29/17 05:38 Glucose 179 mg/dL (70-105) H 12/29/17 05:38 Calcium 9.4 mg/dL (8.6-10.3) 12/29/17 05:38 Total Bilirubin 1.4 mg/dL (0.3-1.0) H 12/29/17 05:38 Direct Bilirubin 0.72 mg/dL (0.0-0.2) H 12/28/17 06:33 AST 131 U/L (13-39) H 12/29/17 05:38 ALT 166 U/L (7-52) H 12/29/17 05:38 Alkaline Phosphatase 78 U/L (34-104) 12/29/17 05:38 Ammonia 55 umol/L (16-53) H 12/27/17 05:33 B-Natriuretic Peptide 146.0 pg/mL (5.0-100.0) H 12/24/17 07:36 Total Protein 5.9 gm/dL (6.0-8.3) L 12/29/17 05:38 Albumin 3.1 gm/dL (4.2-5.5) L 12/29/17 05:38 Globulin 2.8 gm/dL 12/29/17 05:38 Albumin/Globulin Ratio 1.1 (1.0-1.8) 12/29/17 05:38 Stool Occult Blood NEGATIVE (NEGATIVE) 12/25/17 16:42 Vancomycin Trough 25.1 ug/mL (10-20) H 12/26/17 08:00 - Physical Exam Vitals and I&O: Vital Signs Temp 97.4 F 12/29/17 04:00 Pulse 58 12/29/17 08:28 Resp 20 12/29/17 07:30 BP 120/51 12/29/17 08:28 Pulse Ox 98 12/29/17 07:30 Intake & Output 12/28/17 12/29/17 12/29/17 18:59 06:59 18:59 Intake Total 1230 1580 Balance 1230 1580 Weight (lbs) 81.465 kg 81.193 kg Intake: Intake, IV Amount 1050 1100 D5-0.45NS 1,000 ml @ 75 1000 1000 mls/hr IV .[id number] [facility] Rx #:[id number] Piperacillin Sodium/ 50 100 Tazobact 3.375 gm In Sodium Chloride 0.9% 50 ml @ 100 mls/hr IV Q8H [facility] Rx#:[id number] Oral 0 Tube Feeding 180 480 Other: # Voids 3 3 # Bowel Movements 0 Active Medications: Current Medications Albuterol/Ipratropium (Duoneb Neb) 3 ml HHN Q2H PRN PRN Reason: Wheezing Stop: 02/21/18 23:39 Albuterol/Ipratropium (Duoneb Neb) 3 ml HHN Q4HRT [facility] Stop: 02/22/18 22:59 Last Admin: 12/29/17 07:28 Dose: 3 ml Amlodipine Besylate (Norvasc) 10 mg GT DAILY [facility] Stop: 02/23/18 08:59 Last Admin: 12/29/17 08:28 Dose: Not Given Bisacodyl (Dulcolax 10 Mg Supp) 10 mg RC DAILY PRN PRN Reason: IF MOM INEFFECTIVE Stop: 02/22/18 19:48 Hydralazine HCl (Apresoline) 50 mg GT Q8HR [facility] Stop: 02/22/18 20:59 Last Admin: 12/29/17 05:10 Dose: 50 mg Hydrochlorothiazide (Hctz) 50 mg GT DAILY [facility] Stop: 02/23/18 08:59 Last Admin: 12/29/17 08:28 Dose: Not Given Piperacillin Sod/Tazobactam (Sod 3.375 gm/ Sodium Chloride) 50 mls @ 100 mls/ hr IV Q8H [facility] Stop: 02/22/18 00:59 Last Admin: 12/29/17 08:33 Dose: 100 mls/hr Dextrose/Sodium Chloride (D5-0.45ns) 1,000 mls @ 75 mls/hr IV .[id number] [facility] Stop: 02/24/18 19:49 Last Admin: 12/29/17 05:19 Dose: 75 mls/hr Levothyroxine Sodium 0.025 mg/ (Levothyroxine Sodium 0.1 mg) 0.125 mg GT DAILY [facility] Stop: 02/23/18 10:44 Last Admin: 12/29/17 08:28 Dose: Not Given Lisinopril (Zestril) 40 mg GT DAILY [facility] Stop: 02/23/18 08:59 Last Admin: 12/29/17 08:28 Dose: Not Given Lorazepam (Ativan) 1 mg IVP Q4HR PRN; Protocol PRN Reason: for restlessnessand agitation Stop: 02/22/18 20:03 Last Admin: 12/29/17 08:59 Dose: 1 mg Magnesium Hydroxide (Milk Of Magnesia) 30 ml GT DAILY PRN PRN Reason: IF NO BM IN TWO DAYS Stop: 02/22/18 19:48 Methylprednisolone Sodium Succinate (Solu-Medrol) 40 mg IVP Q8HR [facility] Stop: 02/22/18 20:59 Last Admin: 12/29/17 05:11 Dose: 40 mg Pantoprazole Sodium (Protonix) 40 mg IVP DAILY [facility] Stop: 02/23/18 08:59 Last Admin: 12/29/17 08:33 Dose: 40 mg Quetiapine Fumarate (Seroquel) 25 mg GT Q8H PRN; Protocol PRN Reason: Psychosis Stop: 02/22/18 19:48 Last Admin: 12/29/17 00:06 Dose: 25 mg Quetiapine Fumarate (Seroquel) 12.5 mg GT TID [facility] PRN Reason: Protocol Stop: 02/27/18 08:59 Last Admin: 12/29/17 08:29 Dose: Not Given Senna (Senna) 8.6 mg GT BID [facility] Stop: 02/23/18 08:59 Last Admin: 12/29/17 08:30 Dose: Not Given Sodium Phosphate (Fleet Enema) 135 ml RC DAILY PRN PRN Reason: IF MOM OR DULCOLAX INEFFECTIVE Stop: 02/22/18 19:48 Temazepam (Restoril) 15 mg PO HS PRN; Protocol PRN Reason: Insomnia Stop: 02/23/18 17:30 Last Admin: 12/28/17 23:12 Dose: 15 mg General: Alert HEENT: no Atraumatic Neck: Supple Cardiovascular: Regular rate Abdomen: Bowel sounds, Soft, no Tender, no Hepatomegaly, no Rebound, no Mass, no Guarding Skin: no Rash Assessment/Plan - Assessment Assessment: 77 YO MALE WITH POSSIBLE UGI BLEED, although low probability given green NG output HGB IS NORMAL X 2 NO OVERT GI BLEED GI asked about removing G tube. This can be done if he passes a swallow evaluation. In meantime, recommend G tube feeding. # Elevated LFTs # HIDA showing no visualization of CBD Differential here includes choledocholithiasis, although would expect Tbili to be higher. Pt son refusing MRCP, which makes this assessment difficult. ERCP is invasive, and not advised without evidence of choledocholithiasis via MRCP or very convincing signs otherwise. 1.cont tube feeds for now 2.f/u swallow eval prior to G tube removal 3.PROTONIX 4.FOLLOW H/H 5. f/u US, and if shows choledocholithiasis, will need to discuss ERCP with pt' s son 6. If US is equivocal, will try and see if pt's son can consent for MRCP - possibly with ativan given prior to allow the pt to be calm 7. send viral panel
--- NOTE | 2017-12-29 10:05 | Progress Notes ---
DATE: 12/29/2017 SUBJECTIVE: Chart reviewed and the patient interviewed. I also discussed the patient's condition with the staff and reviewed records and labs. The patient is still slightly agitated and restless. The patient also is still confused and still has problems with follow directions. The patient also is interacting minimally with others and he still has episodes of aggression. Otherwise, the patient continued to take Seroquel in a dose of 12.5 mg at bedtime with no side effects. ASSESSMENT: The patient is still agitated and confused. TREATMENT PLAN: We will continue monitoring his behavior and his condition closely. Also, we will increase Seroquel to 12.5 mg 3 times a day and we will continue to follow up closely. [facility]# [id number]
--- NOTE | 2017-12-29 11:12 | Diagnostic Imaging Report ---
Abdominal ultrasound HISTORY: Pain, biliary obstruction The liver exhibits a homogeneous parenchyma. No focal lesions. Evaluation of the gallbladder is limited due to lack of patient cooperation. The gallbladder appears to be rather dilated. An approximate 1.0 cm intraluminal echogenic densities seen near the gallbladder neck. Findings suggest a gallstone. Additional low-level intraluminal echoes consistent with "sludge" also noted. No definite biliary dilatation is seen. Pancreas not well-seen due to bowel gas. Poor delineation of the entire margins of the right kidney. No obvious focal lesions or hydronephrosis. Somewhat limited delineation of the entire left kidney with no obvious focal lesions or hydronephrosis. No other definite retroperitoneal or intra-abdominal abnormalities. IMPRESSION: 1. Limited exam due to patient rotation and lack of cooperation along with considerable bowel gas. 2. Dilated gallbladder with findings suggesting a gallstone as noted above.
--- NOTE | 2017-12-29 11:35 | General Progress Note ---
Subjective - Review of Systems Events since last encounter: awake denies pain at this time Objective - Results Result Diagrams: 12/29/17 05:38 12/29/17 05:38 Recent Labs: Laboratory Last Values WBC 12.4 Th/cmm (4.8-10.8) H 12/29/17 05:38 RBC 4.37 Mil/cmm (3.80-5.80) 12/29/17 05:38 Hgb 12.9 gm/dL (12-16) 12/29/17 05:38 Hct 39.4 % (41.0-60) L 12/29/17 05:38 MCV 90.0 fl (80-99) 12/29/17 05:38 MCH 29.4 pg (27.0-31.0) 12/29/17 05:38 MCHC Differential 32.7 pg (28.0-36.0) 12/29/17 05:38 RDW 13.4 % (11.5-20.0) 12/29/17 05:38 Plt Count 390 Th/cmm (150-400) 12/29/17 05:38 MPV 9.6 fl 12/29/17 05:38 Neutrophils % 92.2 % (40.0-80.0) H 12/29/17 05:38 Band Neutrophils % 1 % (0-10) 12/27/17 05:33 Lymphocytes % 4.8 % (20.0-50.0) L 12/29/17 05:38 Monocytes % 2.9 % (2.0-10.0) 12/29/17 05:38 Eosinophils % 0.0 % (0.0-5.0) 12/29/17 05:38 Basophils % 0.1 % (0.0-2.0) 12/29/17 05:38 Neutrophils (Manual) 91 % (40-80) H 12/28/17 06:33 Lymphocytes 4 % (20-50) L 12/28/17 06:33 Monocytes 5 % (2-10) 12/28/17 06:33 Eosinophils 1 % (0-5) 12/24/17 07:36 Platelet Estimate ADEQUATE (NORMAL) 12/28/17 06:33 Platelet Morphology GIANT PLATELETS SEEN (NORMAL) 12/25/17 15:48 Specimen Source ARTERIAL 12/23/17 22:58 Sample Site Left Radial 12/23/17 22:58 pH 7.57 (7.35-7.45) H* 12/23/17 22:58 pCO2 35.0 mmHg (35.0-45.0) 12/23/17 22:58 pO2 47.0 mmHg (80.0-100.0) L* 12/23/17 22:58 HCO3 32.2 mEq/L (20.0-26.0) H 12/23/17 22:58 Base Excess 9.6 mEq/L (-3.0-3.0) H 12/23/17 22:58 O2 Saturation 89.0 % (92.0-100.0) L 12/23/17 22:58 Ciro Test Positive 12/23/17 22:58 Vent Rate N/A 12/23/17 22:58 Inspired O2 21 12/23/17 22:58 Tidal Volume N/A 12/23/17 22:58 PEEP N/A 12/23/17 22:58 Pressure (ins/psv/peep) N/A 12/23/17 22:58 Critical Value MMIRANDA,WEB WEAVER 12/23/17 22:58 Sodium 140 mEq/L (136-145) 12/29/17 05:38 Potassium 3.7 mEq/L (3.5-5.1) 12/29/17 05:38 Chloride 106 mEq/L (98-107) 12/29/17 05:38 Carbon Dioxide 28.2 mEq/L (21.0-31.0) 12/29/17 05:38 Anion Gap 9.5 (7.0-16.0) 12/29/17 05:38 BUN 47 mg/dL (7-25) H 12/29/17 05:38 Creatinine 1.2 mg/dL (0.7-1.3) 12/29/17 05:38 Est GFR ( Amer) TNP 12/29/17 05:38 Est GFR (Non-Af Amer) TNP 12/29/17 05:38 BUN/Creatinine Ratio 39.2 12/29/17 05:38 Glucose 179 mg/dL (70-105) H 12/29/17 05:38 Calcium 9.4 mg/dL (8.6-10.3) 12/29/17 05:38 Total Bilirubin 1.4 mg/dL (0.3-1.0) H 12/29/17 05:38 Direct Bilirubin 0.72 mg/dL (0.0-0.2) H 12/28/17 06:33 AST 131 U/L (13-39) H 12/29/17 05:38 ALT 166 U/L (7-52) H 12/29/17 05:38 Alkaline Phosphatase 78 U/L (34-104) 12/29/17 05:38 Ammonia 55 umol/L (16-53) H 12/27/17 05:33 B-Natriuretic Peptide 146.0 pg/mL (5.0-100.0) H 12/24/17 07:36 Total Protein 5.9 gm/dL (6.0-8.3) L 12/29/17 05:38 Albumin 3.1 gm/dL (4.2-5.5) L 12/29/17 05:38 Globulin 2.8 gm/dL 12/29/17 05:38 Albumin/Globulin Ratio 1.1 (1.0-1.8) 12/29/17 05:38 Stool Occult Blood NEGATIVE (NEGATIVE) 12/25/17 16:42 Vancomycin Trough 25.1 ug/mL (10-20) H 12/26/17 08:00 - Physical Exam Vitals and I&O: Vital Signs Temp 96.5 F 12/29/17 10:00 Pulse 65 12/29/17 11:01 Resp 20 12/29/17 11:01 BP 121/57 12/29/17 10:00 Pulse Ox 97 12/29/17 11:01 Intake & Output 12/28/17 12/29/17 12/29/17 18:59 06:59 18:59 Intake Total 1230 1580 Balance 1230 1580 Weight (lbs) 81.465 kg 81.193 kg Intake: Intake, IV Amount 1050 1100 D5-0.45NS 1,000 ml @ 75 1000 1000 mls/hr IV .[id number] [facility] Rx #:[id number] Piperacillin Sodium/ 50 100 Tazobact 3.375 gm In Sodium Chloride 0.9% 50 ml @ 100 mls/hr IV Q8H [facility] Rx#:[id number] Oral 0 Tube Feeding 180 480 Other: # Voids 3 3 # Bowel Movements 0 Active Medications: Current Medications Albuterol/Ipratropium (Duoneb Neb) 3 ml HHN Q2H PRN PRN Reason: Wheezing Stop: 02/21/18 23:39 Albuterol/Ipratropium (Duoneb Neb) 3 ml HHN Q4HRT [facility] Stop: 02/22/18 22:59 Last Admin: 12/29/17 10:59 Dose: 3 ml Amlodipine Besylate (Norvasc) 10 mg GT DAILY [facility] Stop: 02/23/18 08:59 Last Admin: 12/29/17 08:28 Dose: Not Given Bisacodyl (Dulcolax 10 Mg Supp) 10 mg RC DAILY PRN PRN Reason: IF MOM INEFFECTIVE Stop: 02/22/18 19:48 Hydralazine HCl (Apresoline) 50 mg GT Q8HR [facility] Stop: 02/22/18 20:59 Last Admin: 12/29/17 05:10 Dose: 50 mg Hydrochlorothiazide (Hctz) 50 mg GT DAILY [facility] Stop: 02/23/18 08:59 Last Admin: 12/29/17 08:28 Dose: Not Given Piperacillin Sod/Tazobactam (Sod 3.375 gm/ Sodium Chloride) 50 mls @ 100 mls/ hr IV Q8H [facility] Stop: 02/22/18 00:59 Last Admin: 12/29/17 08:33 Dose: 100 mls/hr Dextrose/Sodium Chloride (D5-0.45ns) 1,000 mls @ 75 mls/hr IV .[id number] [facility] Stop: 02/24/18 19:49 Last Admin: 12/29/17 05:19 Dose: 75 mls/hr Levothyroxine Sodium 0.025 mg/ (Levothyroxine Sodium 0.1 mg) 0.125 mg GT DAILY [facility] Stop: 02/23/18 10:44 Last Admin: 12/29/17 08:28 Dose: Not Given Lisinopril (Zestril) 40 mg GT DAILY [facility] Stop: 02/23/18 08:59 Last Admin: 12/29/17 08:28 Dose: Not Given Lorazepam (Ativan) 1 mg IVP Q4HR PRN; Protocol PRN Reason: for restlessnessand agitation Stop: 02/22/18 20:03 Last Admin: 12/29/17 08:59 Dose: 1 mg Magnesium Hydroxide (Milk Of Magnesia) 30 ml GT DAILY PRN PRN Reason: IF NO BM IN TWO DAYS Stop: 02/22/18 19:48 Methylprednisolone Sodium Succinate (Solu-Medrol) 40 mg IVP Q8HR [facility] Stop: 02/22/18 20:59 Last Admin: 12/29/17 05:11 Dose: 40 mg Pantoprazole Sodium (Protonix) 40 mg IVP DAILY [facility] Stop: 02/23/18 08:59 Last Admin: 12/29/17 08:33 Dose: 40 mg Quetiapine Fumarate (Seroquel) 25 mg GT Q8H PRN; Protocol PRN Reason: Psychosis Stop: 02/22/18 19:48 Last Admin: 12/29/17 00:06 Dose: 25 mg Quetiapine Fumarate (Seroquel) 12.5 mg GT TID [facility] PRN Reason: Protocol Stop: 02/27/18 08:59 Last Admin: 12/29/17 08:29 Dose: Not Given Senna (Senna) 8.6 mg GT BID [facility] Stop: 02/23/18 08:59 Last Admin: 12/29/17 08:30 Dose: Not Given Sodium Phosphate (Fleet Enema) 135 ml RC DAILY PRN PRN Reason: IF MOM OR DULCOLAX INEFFECTIVE Stop: 02/22/18 19:48 Temazepam (Restoril) 15 mg PO HS PRN; Protocol PRN Reason: Insomnia Stop: 02/23/18 17:30 Last Admin: 12/28/17 23:12 Dose: 15 mg General: Alert HEENT: no Atraumatic Neck: Supple Cardiovascular: Regular rate Abdomen: Bowel sounds, Soft, no Tender, no Hepatomegaly, no Rebound, no Mass, no Guarding Skin: no Rash
--- NOTE | 2017-12-29 12:45 | Consultation ---
DATE OF CONSULTATION: 12/29/2017 SURGICAL CONSULTATION REFERRING PHYSICIAN: Dr. Cedeno. REASON FOR CONSULTATION: Elevated liver enzymes and gallstones. Thank you for referring this patient to me. HISTORY OF PRESENT ILLNESS: This is 77-year-old male transferred from [facility] because of confusion and desaturation. PAST MEDICAL HISTORY: In this patient includes COPD, CVA, dementia, hypertension, and coronary artery disease. The patient has been seen by multiple consultants. The CT scan showed a stone in the gallbladder neck. HIDA scan was done and this shows normal activity within the gallbladder with nonvisualization of the common bile duct. LABORATORY STUDIES: The WBC has gone down from 21,000 3 days ago to 12,400, neutrophils 92%. The liver function test show bilirubin 1.4, elevated AST to 131, and ALT to 166. Dr. Le, GI technical support consultant told me that the patient ____ MRCP for him to do ERCP, but the son apparently refused to have this done in view of bad experience at [facility] some time back. PHYSICAL EXAMINATION: Now, the patient is totally confused and poorly communicative. He does not seem to have any abdominal pain, however. There is a PEG tube in the midline abdomen. RECOMMENDATIONS: The patient is to undergo ultrasound today to determine the status of the common bile duct and possibility of gallstone that might require ERCP prior to any surgical intervention. JOB# [id number]
== END 2017-12-29 20:20 | disposition home or self-care (01) | DRG 177 ==
LOC: MSI 20:29 → TELE 12-24 03:41
PROVIDERS: ADMIT Internal Medicine; ATTEND Internal Medicine
DX: J69.0 Pneumonitis due to inhalation of food and vomit (principal); J96.91 Respiratory failure, unspecified with hypoxia; J44.1 Chronic obstructive pulmonary disease with (acute) exacerbation; K80.40 Calculus of bile duct with cholecystitis, unspecified, without obstruction; G30.9 Alzheimer's disease, unspecified; F02.80 Dementia in other diseases classified elsewhere, unspecified severity, without behavioral disturbance, psychotic disturbance, mood disturbance, and anxiety; F29 Unspecified psychosis not due to a substance or known physiological condition; I11.0 Hypertensive heart disease with heart failure; I50.9 Heart failure, unspecified; R13.10 Dysphagia, unspecified; E03.9 Hypothyroidism, unspecified; I25.10 Atherosclerotic heart disease of native coronary artery without angina pectoris; Z86.73 Personal history of transient ischemic attack (TIA), and cerebral infarction without residual deficits; Z87.891 Personal history of nicotine dependence
CPT/HCPCS: 36415-UA; 36600-90; 71045-TC; 74000-TC; 76700-TC; 78226-TC; 80048-TC; 80053-TC; 80076-TC; 80202-TC; 82140-TC; 82248-TC; 82270-TC; 82565-TC; 82803-TC; 83880-TC; 84520-TC; 85007-TC; 85025-TC; 85027-TC; 94760; A9537; C9113; J2060; J2543; J2920; J3370; J7040; J7042; Z7610